=== PATIENT | male | born 1975 | race Caucasian/White ===

== ENCOUNTER 2017-04-19 12:33 | Inpatient (IN) | payer OTHER ==
[~2017-04-19] VITALS: Ht 175.3 cm; Wt 76.7 kg
--- NOTE | 2017-04-19 12:35 | NUR ---
PT TO ROOM21 BIBA FROM HOME FOR UNRESPONSIVNESS AND ?OVERDOSE. PT WAS FOUND AT HIS PORCH ALTERED, WITH VOMIT OVER HIS SHIRT. PT RECEIVED 0.2 OF NARCAN WITH MINIMUM EFFECT. ARRIVED RESPONCIVE TO PAINFUL STIMULI, ON NON REBREATHER, O2SAT 100%, VSS, BG 109 BY SHOT BLAST EQUIPMENT OPERATOR. LUIS CALDERÓN AT BEDSIDE FOR PT EVAL.
--- NOTE | 2017-04-19 12:42 | NUR ---
BLOOD DRAWN AND SENT TO LAB-2SST,LAV,BLUE,CHRISTINE. PT REMAINES UNRESPONSIVE, MEDICATED WITH NARCAN 0.8 IV WITH NO EFFECT. RESP AT BEDSIDE FOR SXN.
--- NOTE | 2017-04-19 12:46 | ED AMS/SEIZURE/WEAK/DIZZY ---
History of Present Illness General Chief Complaint: Altered Mental Status Stated Complaint: ?OD Source: old records, EMS Exam Limitations: clinical condition Triage Nurses Notes Reviewed? yes Onset: UNKNOWN Duration: unknown duration No Modifying Factors: none HPI: 42-year-old male brought in for possible overdose. Patient was found on his front porch by his landlord and was altered and drooling on himself. Ambulance was called. When 0.2 mg of Narcan was given in the field with minimal response. Pupils were pinpoint. Patient has a history of heroin abuse as well as alcohol abuse. Patient is not able to offer any type of information. Patient is obtunded. (DONTAE REGAN) Vital Signs & Intake/Output Vital Signs & Intake/Output Vital Signs Date Time Temp Pulse Resp B/P B/P Pulse O2 O2 Flow FiO2 Mean Ox Delivery Rate 04/19 1540 96.8 85 14 114/71 97 Nasal 4.0L Cannula 04/19 1417 95.9 93 14 117/66 98 Nasal 4.0L Cannula 04/19 1342 95.6 89 18 109/67 100 Non 100% ReBreather 04/19 1255 100 Non 100% ReBreather 04/19 1239 95.0 86 16 137/90 98 Non 10L ReBreather 04/19 1236 100 Non ReBreather Allergies Coded Allergies: UNOBTAINABLE (04/19/17) Reconcile Medications Unable to Obtain Home Medication History (DIVINE RODRIGUEZ,AMA Ch) Past History Travel History Traveled to [place] past 21 day No Medical History Any Pertinent Medical History? see below for history Surgical History Surgical History: non-contributory Family History Hx Contributory? No (DONTAE REGAN) Review of Systems Review of Systems Constitutional: Reports: see HPI. EENTM: Reports: no symptoms. Respiratory: Reports: see HPI. Cardiovascular: Reports: no symptoms. GI: Reports: no symptoms. Genitourinary: Reports: no symptoms. Musculoskeletal: Reports: no symptoms. Skin: Reports: no symptoms. Neurological/Psychological: Reports: no symptoms. Hematologic/Endocrine: Reports: no symptoms. Immunologic/Allergic: Reports: no symptoms. All Other Systems: Reviewed and Negative (DONTAE REGAN) Physical Exam Physical Exam General Appearance: sedated, moderate distress, PATIENT NOT RESPONDING TO PAINFUL STIMULI Head: atraumatic Eyes: Bilateral: PERRL (PUPILS PINPOINT). Ears, Nose, Throat: PATIENT HAS SECRETIONS ALL-AROUND ORAL CAVITY, GURGLING, Neck: normal inspection Respiratory: decreased breath sounds Cardiovascular: regular rate/rhythm Back: normal inspection Extremities: NORMAL INSPECTION Neurologic/Psych: disoriented x 3 Skin: intact, normal color (DONTAE REAGN) Core Measures ACS in differential dx? No CVA/TIA Diagnosis: No Severe Sepsis Present: No Septic Shock Present: No (DIVINE RODRIGUEZ,AMA Ch) Progress Differential Diagnosis: arrythmia, alcohol intoxication, anemia, benign positional vertigo, CVA/stroke, drug intoxication, encephalitis, electrolyte imbalance, GI bleed, intracranial Hem., intracranial mass/tumor, meningitis, Meniere's disease, migraine OLIVARES, multiple sclerosis, pneumonia, postural hypotension, sepsis, seizure disorder, subarachnoid Hem., UTI/pyelo Diagnostic Imaging: Viewed by Me: Radiology Read, CT Scan. Discussed w/RAD: Radiology Read, CT Scan. Radiology Impression: EXAM TYPE: RAD - XRY-PORTABLE CHEST XRAY EXAMINATION: XR PORTABLE CHEST CLINICAL INFORMATION: Overdose, evaluate for aspiration. COMPARISON: None TECHNIQUE: Portable frontal view of the chest was obtained. FINDINGS: The cardiomediastinal silhouette is unremarkable. Lung volumes are diminished. There is minimal discoid atelectasis suspected at the bilateral lung bases. The lungs and pleural spaces otherwise appear clear without evidence of congestion, consolidation, or significant appearing effusion or atelectasis. There is no evidence of pneumothorax or pulmonary edema. Included osseous structures appear largely unremarkable. IMPRESSION: Low lung volumes. Minimal atelectasis or scarring bilateral lung bases. DICTATED BY: HILTON CHOUDHURY MD DATE/TIME DICTATED:04/19/171320 HORSERADISH MAKER:ZAHRA DATE/TIME TRANSCRIBED:04/19/171320, SERVICE DATE: 04/19/17 EXAM TYPE: CAT - CT HEAD WO IV CONTRAST EXAMINATION: CT HEAD WITHOUT CONTRAST CLINICAL INFORMATION: Altered mental status. COMPARISON: No relevant prior imaging available. TECHNIQUE: Contiguous axial imaging was performed from the skull base to vertex without intravenous administration of contrast. DLP: 620.91 mGy-cm FINDINGS: There is mineralization associated with a triangular focus of hypoattenuation within the right cerebellar hemisphere. 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 Murphy-white matter differentiation is otherwise preserved and there is no evidence of acute territorial infarct. No acute hemorrhage or abnormal extra-axial collection. No intracranial mass effect or midline shift. Lateral and third ventricles are normal. No hydrocephalus. That calvarium and skull base are intact. Mastoid air cells and middle ear cavities are well aerated. Visualized paranasal sinuses are well-aerated. 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 The possibility of a cerebellar dysplasia cannot be definitively excluded on basis of this examination. A brain MRI can be obtained for better anatomic characterization of this finding. Otherwise normal CT scan of the head with no evidence of acute territorial infarct or hemorrhage. DICTATED BY: KIT RODRIGUEZ, NEISHA Saravia DATE/TIME DICTATED:04/19/171510 HORSERADISH MAKER:ZAHRA Initial ED EKG: normal intervals, normal p-waves, normal QRS complex, normal sinus rhythm, rate (81) (MARISELA SMITH,DONTAE) Plan of Care: Orders Procedure Date/time Status Patient Data 04/19 1700 Active Admit to inpatient 04/19 1625 Active Add-on Test (ER Only) 04/19 1410 Active URINALYSIS 04/19 1258 Complete [place], Insertion/Removal/Asses 04/19 1253 Active CULTURE,URINE 04/19 1253 Active Telemetry/Race Engine Builder 04/19 1245 Active URINE DRUGS OF ABUSE 04/19 1245 Complete ACETOMINOPHEN 04/19 1245 Complete TROPONIN LEVEL 04/19 1245 Complete SALICYLATE 04/19 1245 Complete ETHANOL 04/19 1245 Complete COMPREHENSIVE METABOLIC PANEL 04/19 1245 Complete CBC WITHOUT DIFFERENTIAL 04/19 1245 Complete EKG 04/19 1239 Active Laboratory Tests 04/19/17 1306: HIV 1&2 Antibody Cancelled 04/19/17 1258: Urinalysis HEAVY H, Urine Color YEL, Urine Clarity TURBD H, Urine pH 6.0, Ur Specific [place] >= 1.030, Urine Protein TRACE H, Urine Ketones TRACE H, Urine Nitrite NEG, Urine Bilirubin NEG, Urine Urobilinogen 0.2, Ur Leukocyte Esterase NEG, Ur Microscopic SEDIMENT EXAMINED, Urine Bacteria FEW H, Urine Hemoglobin NEG, Urine Glucose NEG 04/19/17 1255: Urine Opiates Screen < 100.00, Methadone Screen < 40, Barbiturate Screen 71, Ur Phencyclidine Scrn < 6.00, Amphetamines Screen 115, U Benzodiazepines Scrn > 800 H, Urine Cocaine Screen > 1000 H, Urine Cannabis Screen < 5.00 04/19/17 1255: Anion Gap 16, Estimated GFR > 60, BUN/Creatinine Ratio 35.0 H, Glucose 108 H, Calcium 10.6 H, Total Bilirubin 0.6, AST 24, ALT 34, Alkaline Phosphatase 76, Troponin I < 0.01, Total Protein 7.9, Albumin 4.9, Globulin 3.0, Albumin/ Globulin Ratio 1.6, CBC w Diff MAN DIFF ORDERED, RBC 4.99, MCV 96.7 H, MCH 31.6 H, RDW 13.5, MPV 9.6, Gran % 88.2 H, Lymphocytes % 6.0 L, Monocytes % 3.1, Eosinophils % 2.5, Basophils % 0.2, Absolute Granulocytes 18.6 H, Absolute Lymphocytes 1.3, Absolute Monocytes 0.7 H, Absolute Eosinophils 0.5, Absolute Basophils 0, Platelet Estimate ADEQUATE, Normocytic RBCs VERIFIED, Normochromic RBCs VERIFIED, PUBS MCHC 32.7 L, Salicylates < 1.0, Acetaminophen < 10.0 L, Serum Alcohol 15.0 Microbiology 04/19 1258 URINE ROUT: Urine Culture - RECD Comments: 1437 d/w dr alfaro, who feels the patient should be observed in the emergency department for about another hour to see if he improves to the point where he wouldn't need the ICU. 1542 patient remains lethargic with otherwise stable vital signs. Patient's case discussed with Dr. Alfaro who will review the patient's chart. (DIVINE RODRIGUEZ,AMA Ch) Departure Departure Condition: Stable Referrals: ROLANDO WOODY MD (PCP/Family) Departure Forms: Customer Survey General Discharge Information (DONTAE REGAN) Departure Disposition: STILL A PATIENT Clinical Impression Primary Impression: Polysubstance overdose Qualifiers: Encounter type: initial encounter Injury intent: undetermined intent Qualified Code: T50.904A - Poisoning by unspecified drugs, medicaments and biological substances, undetermined, initial encounter Secondary Impressions: Benzodiazepine abuse Cocaine abuse Leukocytosis Qualifiers: Leukocytosis type: unspecified Qualified Code: D72.829 - Elevated white blood cell count, unspecified Prescriptions: Current Visit Scripts Unable to Obtain Home Medication History Admission Note Spoke With: FAY RODRIGUEZ,AFTAB Yodre Documentation of Exam: Documentation of any treatments & extenuating circumstances including Concerns Regarding Discharge (functional status, medication knowledge or non-compliance, living conditions, etc.) that warrant an admission rather than observation: Patient presents nearly unresponsive from a polypharmaceutical overdose. Although he has been medicated with IV fluids and Narcan, he remains lethargic. Fortunately he has been managing his airway appropriately and has been hemodynamically stable. However given his current clinical condition I feel he requires intensive unit care with close clinical monitoring of physical examination vital signs. Continuous pulse oximetry should be monitored as well and patient's oxygen supplementation adjusted accordingly. Given the very limited history obtainable, the substances this patient has overdosed with is unclear as is the underlying intent. This could have potentially been a suicide overdose. Feel this patient should be admitted to the intensive care unit as outlined above. Psychiatry consultation should be considered once the patient is more awake and alert. Given the unclear nature of this patient's presentation I suspect he will require a multiple day hospitalization. PA/SAFETY TRAINER Co-Sign Statement Statement: ED Attending supervision documentation- [x] I saw and evaluated the patient. I have also reviewed all the pertinent lab results and diagnostic results. I agree with the findings and the plan of care as documented in the PA's/SAFETY TRAINER's documentation. [] I have reviewed the ED Record and agree with the PA's/SAFETY TRAINER's documentation. [] Additions or exceptions (if any) to the PAs/SAFETY TRAINER's note and plan are summarized below: [] (DIVINE RODRIGUEZ,AMA Ch) Critical Care Note Critical Care Note Critical Care Time: 30-74 min (AMA HASKINS MD)
--- NOTE | 2017-04-19 13:03 | NUR ---
PT RECEIVED 2ND DOSE OF NARCAN 0.8 IV WITH NO IMPROVEMENT. REMAINES ON NON-REBREATHER 02SAT 98%
[2017-04-19 13:07] LABS: ABSOLUTE BASOPHIL COUNT 0 /CUMM (0.0-0.2); ABSOLUTE EOSINOPHIL COUNT 0.5 /CUMM (0.0-0.7); ABSOLUTE GRANULOCYTE CT 18.6 /CUMM (1.4-6.5); ABSOLUTE LYMPH COUNT 1.3 /CUMM (1.2-3.4); ABSOLUTE MONOCYTE COUNT 0.7 /CUMM (0.10-0.60); BASOPHIL % 0.2 % (0.0-2.0); EOSINOPHIL % 2.5 % (0-5); GRANULOCYTE % 88.2 % (42.2-75.2); HEMATOCRIT 48.2 % (42-52); MEAN CORPUSCULAR HGB 31.6 PG (27.0-31.0); MEAN CORPUSCULAR HGB CONC 32.7 G/DL (33.0-37.0); MEAN CORPUSCULAR VOLUME 96.7 FL (80.0-94.0); MEAN PLATELET VOLUME 9.6 FL (7.4-10.4); PLATELET COUNT 221 /CUMM (130-400); RBC DISTRIBUTION WIDTH 13.5 % (11.5-14.5); RED BLOOD CELL CT 4.99 /CUMM (4.70-6.10); WHITE BLOOD CELL COUNT 21.1 /CUMM (4.8-10.8)
--- NOTE | 2017-04-19 13:27 | RADIOLOGY REPORT ---
EXAMINATION: XR PORTABLE CHEST CLINICAL INFORMATION: Overdose, evaluate for aspiration. COMPARISON: None TECHNIQUE: Portable frontal view of the chest was obtained. FINDINGS: The cardiomediastinal silhouette is unremarkable. Lung volumes are diminished. There is minimal discoid atelectasis suspected at the bilateral lung bases. The lungs and pleural spaces otherwise appear clear without evidence of congestion, consolidation, or significant appearing effusion or atelectasis. There is no evidence of pneumothorax or pulmonary edema. Included osseous structures appear largely unremarkable. IMPRESSION: Low lung volumes. Minimal atelectasis or scarring bilateral lung bases.
--- NOTE | 2017-04-19 13:41 | NUR ---
PT STILL RESPONSIVE TO PAINFUL STIMULI ONLY BY MOANING AND STILL ON NON REBREATHER, 02SAT 100%, SKIN COOL/DRY, PUPILS 1MM, VSS. WCTM.
--- NOTE | 2017-04-19 14:14 | NUR ---
2SST TUBES DRAN AND SENT TO LAB. PT REMAINES UNRESPONSIVE. PLACED ON NC 4L PER ORDER LUIS ANTONIO, O2SAT 98%, RR14. VSS. WCTM.
--- NOTE | 2017-04-19 14:32 | NUR ---
RESP AT BEDSIDE FOR SXN.
--- NOTE | 2017-04-19 14:48 | NUR ---
PT TO CAT SCAN BY STRETCHER.
--- NOTE | 2017-04-19 15:24 | CT SCAN REPORT ---
EXAMINATION: CT HEAD WITHOUT CONTRAST CLINICAL INFORMATION: Altered mental status. COMPARISON: No relevant prior imaging available. TECHNIQUE: Contiguous axial imaging was performed from the skull base to vertex without intravenous administration of contrast. DLP: 620.91 mGy-cm FINDINGS: There is mineralization associated with a triangular focus of hypoattenuation within the right cerebellar hemisphere. 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 Murphy-white matter differentiation is otherwise preserved and there is no evidence of acute territorial infarct. No acute hemorrhage or abnormal extra-axial collection. No intracranial mass effect or midline shift. Lateral and third ventricles are normal. No hydrocephalus. That calvarium and skull base are intact. Mastoid air cells and middle ear cavities are well aerated. Visualized paranasal sinuses are well-aerated. 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 The possibility of a cerebellar dysplasia cannot be definitively excluded on basis of this examination. A brain MRI can be obtained for better anatomic characterization of this finding. Otherwise normal CT scan of the head with no evidence of acute territorial infarct or hemorrhage.
--- NOTE | 2017-04-19 15:40 | NUR ---
PT RESPONDED TO TACTILE STIMULI BY MOANING AND OPENING EYES, VSS. WCTM.
--- NOTE | 2017-04-19 16:56 | NUR ---
PT RESPONSIVE TO TACTILE STIMULI BY OPENING EYES ONLY, O2 TITRATED DOWN TO 2L NC WITH O2SAT REMAINING AT 99% VSS.
--- NOTE | 2017-04-19 17:39 | NUR ---
HOUSE STAFF TO BEDSIDE FOR PT EVAL.
--- NOTE | 2017-04-19 17:54 | History & Physical ---
POLLO RODRIGUEZ,[facility] 04/19/17 6701: General Information and HPI MD Statement: I have seen and personally examined INDIGO SELLERS and documented this H&P. The patient is a 42 year old M who presented after he was found unresponsive Source of Information: old records, EMR Exam Limitations: unable to give history, not alert/orientated, clinical condition, intoxication History of Present Illness: Patient is unable to provide history as he still unconscious and only respond to painful stimuli. 42-year-old male with unobtainable PMH who presented to the [facility] ED after his Landlord found him lying on his front porch unconscious with a mouth full of secretions. On the way to the hospital he was given Narcan 0.8 mg twice with no response. Past medical history, past surgical history, social history, allergies, review of system cannot be obtained as mentioned above. Allergies/Medications Allergies: Coded Allergies: UNOBTAINABLE (04/19/17) Home Med list Unable to Obtain Home Medication History Past History Travel History Traveled to [place] past 21 day No Surgical History Surgical History: non-contributory Past Family/Social History Psychosocial History Other Social History: Looked H&P Review of Systems Review of Systems Constitutional: Reports: see HPI. Exam & Diagnostic Data Last 24 Hrs of Vital Signs/I&O Vital Signs Date Time Temp Pulse Resp B/P B/P Pulse O2 O2 Flow FiO2 Mean Ox Delivery Rate 04/19 1656 99.0 77 16 104/63 100 Nasal 2.0L Cannula 04/19 1540 96.8 85 14 114/71 97 Nasal 4.0L Cannula 04/19 1417 95.9 93 14 117/66 98 Nasal 4.0L Cannula 04/19 1342 95.6 89 18 109/67 100 Non 100% ReBreather 04/19 1255 100 Non 100% ReBreather 04/19 1239 95.0 86 16 137/90 98 Non 10L ReBreather 04/19 1236 100 Non ReBreather Intake & Output 04/19 1600 04/19 0800 04/19 0000 Intake Total Output Total 300 Balance -300 Output, Urine 300 Patient 72.575 kg Weight Weight Estimated Measurement Method Physical Exam General Appearance note alert nor oriented Skin No Rashes, No Significant Lesion HEENT Atraumatic, pinpoint pupil that does not react to light Neck Supple, No JVD Cardiovascular Regular Rate, Normal S1, Normal S2, No Murmurs Lungs mild rhonchi Abdomen Soft Neurological unconscious response only to painful stimuli Extremities No Clubbing, No Cyanosis, No Edema Last 24 Hrs of Labs/Isreal: Laboratory Tests 04/19/17 1306: HIV 1&2 Antibody Cancelled 04/19/17 1258: Urinalysis HEAVY H, Urine Color YEL, Urine Clarity TURBD H, Urine pH 6.0, Ur Specific [place] >= 1.030, Urine Protein TRACE H, Urine Ketones TRACE H, Urine Nitrite NEG, Urine Bilirubin NEG, Urine Urobilinogen 0.2, Ur Leukocyte Esterase NEG, Ur Microscopic SEDIMENT EXAMINED, Urine Bacteria FEW H, Urine Hemoglobin NEG, Urine Glucose NEG 04/19/17 1255: Urine Opiates Screen < 100.00, Methadone Screen < 40, Barbiturate Screen 71, Ur Phencyclidine Scrn < 6.00, Amphetamines Screen 115, U Benzodiazepines Scrn > 800 H, Urine Cocaine Screen > 1000 H, Urine Cannabis Screen < 5.00 04/19/17 1255: Anion Gap 16, Estimated GFR > 60, BUN/Creatinine Ratio 35.0 H, Glucose 108 H, Calcium 10.6 H, Total Bilirubin 0.6, AST 24, ALT 34, Alkaline Phosphatase 76, Troponin I < 0.01, Total Protein 7.9, Albumin 4.9, Globulin 3.0, Albumin/ Globulin Ratio 1.6, CBC w Diff MAN DIFF ORDERED, RBC 4.99, MCV 96.7 H, MCH 31.6 H, RDW 13.5, MPV 9.6, Gran % 88.2 H, Lymphocytes % 6.0 L, Monocytes % 3.1, Eosinophils % 2.5, Basophils % 0.2, Absolute Granulocytes 18.6 H, Absolute Lymphocytes 1.3, Absolute Monocytes 0.7 H, Absolute Eosinophils 0.5, Absolute Basophils 0, Platelet Estimate ADEQUATE, Normocytic RBCs VERIFIED, Normochromic RBCs VERIFIED, PUBS MCHC 32.7 L, Salicylates < 1.0, Acetaminophen < 10.0 L, Serum Alcohol 15.0 Microbiology 04/19 1759 URINE ROUT: Legionella Antigen - ORD 04/19 1759 URINE ROUT: Streptococcus pneumoniae Antigen (M - ORD 04/19 1759 LOWER RESP: Respiratory Culture - ORD 04/19 1759 LOWER RESP: Gram Stain - ORD 04/19 1759 BLOOD: Blood Culture - ORD 04/19 1759 BLOOD: Blood Culture - ORD 04/19 1757 UPPER RESP: Surveillance Culture - ORD 04/19 1757 GI: Surveillance Culture - ORD 04/19 1258 URINE ROUT: Urine Culture - RECD Assessment/Plan Assessment: This 42-year-old male with an unavailable PMH, who was found unresponsive with large oral secretions and aspiration cannot be excluded plus leukocytosis. U tox on the ED was positive for cocaine and benzodiazepine. EKG had less than [address] depression on lead 3 only, even though ACS is unlikely it will need to be excluded. AMS most likely due to Polysubstance abuse * Monitor in the ICU * Hydrate with IV fluids * Watch for withdrawal symptom * No beta mirza(cocaine overdose) * CK level * Echocardiogram * Serial troponin and EKG to rule out ACS * We will try to contact patient family and PCP if possible in the morning Possible aspiration pneumonia Given the high risk of aspiration pneumonia she will be covered with antibiotic * Unasyn 3 g every 6 hours. Macrocytosis with a history of substance abuse * Check B12 and folic acid * Supplement if necessary Nothing by mouth DVT PPx heparin Full code As Ranked By This Provider Problem List: 1. Leukocytosis Qualifiers Leukocytosis type: unspecified Qualified Code: D72.829 - Elevated white blood cell count, unspecified 2. Benzodiazepine abuse 3. Cocaine abuse 4. Polysubstance overdose Qualifiers Encounter type: initial encounter Injury intent: undetermined intent Qualified Code: T50.904A - Poisoning by unspecified drugs, medicaments and biological substances, undetermined, initial encounter Core Measures/Miscellaneous Acute Coronary Syndrome ACS Diagnosis: No Cerebrovascular Accident CVA/TIA Diagnosis: No Congestive Heart Failure CHF Diagnosis: No VTE (View Protocol) VTE Risk Factors: Acute medical illness, Age > 40 [facility] prophylaxis d/t: No contraindications No VTE Pharm Prophylaxis d/t: No contraindications VTE Diagnosis: No VTE Type: NONE VTE Confirmed by (Test): NONE Sepsis (View Protocol) Severe Sepsis Present: No Septic Shock Septic Shock Present: No Miscellaneous Documentation Attending Case Discussed With: AFTAB APONTE MD Primary Care Physician: ROLANDO WOODY MD Patient sees these Specialists pulm Level of Patient Care: Critical Care (CRI) ENRIQUE LOAIZA MD 04/19/17 1758: Resident Review Statement Resident Statement: examined this patient, discussed with customer experience intern Other Findings: This is a 42-year-old gentleman with no recorded past medical history, takes no meds per medication claim history presented to the emergency room via ambulance after his landlord found him unconscious on his front porch altered and drooling on himself. He was brought to the emergency room for evaluation via ambulance. He was given Narcan 0.82 with no response. At present the patient is unable to provide a history as he continues to be altered. His U tox is positive for benzodiazepines and cocaine, he is admitted to the ICU for the same. At present he is attended hence a meaningful review systems could not be obtained. I tried contacting his contact listed in the EMR however it states that the number I have dialed is unreachable. Physical exam Patient awakens only to sternal rub Skin exam is normal Normal S1 and S2, no murmurs Lungs are clear to auscultation Neuro exam could not be elicited given his clinical condition EKG- rate 81, IA 172, QRS 102, QTC 441, sinus rhythm, no ST to T wave changes, no previous tracing to compare with Assessment- 1. Altered mental status likely secondary to cocaine and benzodiazepine overdose 2. Possible aspiration 3. Leukocytosis, reactive versus new onset aspiration 4. ? UTI Plan- Admit to the ICU Vitals per protocol Strict I's and O's IV fluids normal saline at 100 mL times one bag Walter culture Start on Unasyn 3 g every 6 Monitor for withdrawal symptoms, consider clonidine, low-dose benzo or Haldol for withdrawal No beta mirza Trend troponin EKG Check echocardiogram, rule out endocarditis Check hepatitis and HIV profile Pain pathway DVT prophylaxis with subcutaneous heparin Full code FAY RODRIGUEZ,[facility] 04/19/17 1843: Attending MD Review Statement Attending Statement Attending MD Statement: examined this patient, discuss w/resident/PA/PATTERN DESIGNER, agreed w/resident/PA/PATTERN DESIGNER, discussed with family, reviewed EMR data (avail), discussed with nursing, discussed with case mgmt, reviewed images, amended to note Attending Assessment/Plan: Examined independently PT sleepy but arousable to verbal command but drifts back to sleep Assessment- 1. Altered mental status likely secondary to cocaine and benzodiazepine overdose 2. Possible aspiration 3. Leukocytosis, reactive versus new onset aspiration 4. ? UTI REC Admit to ICU Watch IVf abx keep hob up Prn benzo for agitation Qtc to be checked and use prn olanzapine
--- NOTE | 2017-04-19 18:03 | NUR ---
BED ASSIGNMENT 104
[2017-04-19 18:26] LABS: PT 10.8 SEC (9.4-12.5)
--- NOTE | 2017-04-19 18:32 | NUR ---
NO CHANGE IN PTS STATUS, VSS, NS INFUSING PER EMAR.
--- NOTE | 2017-04-19 19:13 | NUR ---
2 SETS OF BC DONE BY CAITY MANCUSO. UNASYN INFUSING PER EMAR. PT RESPONSING TO VOICE, OPENING EYES, MOVING UPPER EXTREMITIES. VSS.
--- NOTE | 2017-04-19 21:00 | NUR ---
RECIEVED PT FROM ER. PT AROUSABLE, CONFUSED. STATES HE WANTS A COFFEE, PT REMINDED HE IS NPO. MOVES ALL EXT. ST 100'S. SBP 100. NC/2L RHONCHI IN ALL LUNG MOONEY. 97%. +BS. LORENZ CATH IN PLACE SOURAV OUTPUT. SKIN INTACT. DENIES PAIN. BED ALARM APPLIED. IVF 100ML.HR X 1 BAG PER SERO. WILL CONT TO MONITOR
[2017-04-20] VITALS: BP 100/60
[2017-04-20 04:31] LABS: ABSOLUTE BASOPHIL COUNT 0.1 /CUMM (0.0-0.2); ABSOLUTE EOSINOPHIL COUNT 0.8 /CUMM (0.0-0.7); ABSOLUTE GRANULOCYTE CT 10.3 /CUMM (1.4-6.5); ABSOLUTE LYMPH COUNT 2.3 /CUMM (1.2-3.4); ABSOLUTE MONOCYTE COUNT 1.2 /CUMM (0.10-0.60); BASOPHIL % 0.3 % (0.0-2.0); EOSINOPHIL % 5.6 % (0-5); GRANULOCYTE % 70.7 % (42.2-75.2); MEAN CORPUSCULAR HGB 31.8 PG (27.0-31.0); MEAN CORPUSCULAR VOLUME 96.5 FL (80.0-94.0); MEAN PLATELET VOLUME 9.4 FL (7.4-10.4); PLATELET COUNT 205 /CUMM (130-400); RBC DISTRIBUTION WIDTH 13.5 % (11.5-14.5); RED BLOOD CELL CT 4.06 /CUMM (4.70-6.10); WHITE BLOOD CELL COUNT 14.6 /CUMM (4.8-10.8)
[2017-04-20 04:36] LABS: HEMATOCRIT 39.2 % (42-52)
--- NOTE | 2017-04-20 07:18 | PN- Resident CRCU ---
PO[facility]O R[facility]IGUEZ[facility] 04/20/17 0717: Subjective HPI/CRCU Issues: Afebrile, hemodynamically stable, saturating well on 2 L of oxygen. Patient is lethargic and sleepy but arousable to verbal commands. His morning he reports being hungry and asked for break fast. No overnight events were reported. Patient denies any current active complaints. Patient stated that he wanted to end his life and took benzos and cocaine 24 Hour Events: MAXIMUM TEMPERATURE 99.5 Heartrate 92-110 with average Blood pressure 92/52 and highest 137/68 Saturating mid 90s on 2 L of oxygen Yesterday Is/Os 560/1220 (negative balance) Objective Vital Signs & I&O Last 8 Hrs of Vitals and I&O: Vital Signs Date Time Temp Pulse Resp B/P B/P Pulse O2 O2 Flow FiO2 Mean Ox Delivery Rate 04/20 0400 94 Nasal 2.0L Cannula 04/20 0200 94 Nasal 2.0L Cannula 04/20 0059 97 Nasal 2.0L Cannula 04/20 0000 93 Nasal 2.0L Cannula 04/20 0000 98.4 110 20 100/60 93 Nasal 2.0L Cannula 04/19 2050 97 Nasal 2.0L Cannula 04/19 1916 99.6 102 16 109/60 98 Nasal 2.0L Cannula 04/19 1826 99.8 107 18 107/65 93 Nasal 3.0L Cannula 04/19 1656 99.0 77 16 104/63 100 Nasal 2.0L Cannula 04/19 1540 96.8 85 14 114/71 97 Nasal 4.0L Cannula 04/19 1417 95.9 93 14 117/66 98 Nasal 4.0L Cannula 04/19 1342 95.6 89 18 109/67 100 Non 100% ReBreather 04/19 1255 100 Non 100% ReBreather 04/19 1239 95.0 86 16 137/90 98 Non 10L ReBreather 04/19 1236 100 Non ReBreather Intake & Output 04/20 1600 07 0800 06/ 0000 Intake Total 260 300 Output Total 350 870 Balance -90 -570 Intake, IV 260 300 Intake, Oral 0 0 Number 0 0 Bowel Movements Output, Urine 350 870 Patient 76.657 kg Weight Weight Bed scale Measurement Method Exam General Appearance: no apparent distress, alert, lethargic Head: atraumatic, normal appearance Respiratory: chest non-tender, no respiratory distress, rhonchi Cardiovascular: regular rate/rhythm, No murmur Gastrointestinal: soft, non-tender Extremities: normal inspection, no edema Cranial Nerves: normal speech, PERRL Skin: intact, normal color Current Medications: Current Medications Sig/Isiah Start time Last Medication Dose Route Stop Time Status Admin Albuterol Sulfate 3 ML ONCE ONE 04/20 0145 DC 04/20 INH 04/20 0146 0138 Ampicillin Sodium/ 0 .STK-MED ONE 04/19 1834 DC Sulbactam Sodium .ROUTE Ampicillin Sodium/ 3,000 MG Q6 04/19 1800 AC 04/20 Sulbactam Sodium IV 0509 Sodium Chloride 100 ML Ergocalciferol 50,000 IU Q168 04/26 1000 AC PO Heparin Sodium 5,000 UNIT Q8 04/19 2200 AC 04/20 (Porcine) SC 0515 Magnesium Sulfate 1 GM ONCE ONE 04/20 0730 AC Dextrose/Water 100 ML IV 04/20 1129 Naloxone HCl 0 .STK-MED ONE 04/19 1257 DC .ROUTE Naloxone HCl 0.8 MG ONCE ONE 04/19 1245 DC 06/ IV 06/ 1246 1240 Naloxone HCl 0.8 MG ONCE ONE 04/19 1245 DC 06/ IV 06/ 1246 1300 Sodium Chloride 1,000 ML Q13H 04/20 0830 AC IV Sodium Chloride 1,000 ML ONCE ONE 04/19 1800 DC 06/ IV 06/ 0359 1831 Impression/Plan Impression/Problem List Impression: This 42-year-old male with an unavailable PMH, who was found unresponsive with some oral secretions and aspiration cannot be excluded plus leukocytosis. Day1 U tox on the ED was positive for cocaine and benzodiazepine.CT scan of the head with no evidence of acute territorial infarct or hemorrhage. RFT, LFT, TFT, CK, B12, and folic acid was WNL. Day2 patient is awake, alert and oriented. He states that he overdosed benzo and cocaine as a suicidal attempts. He is hungry and asking for food. #Suicidal ideation/depression * One-to-one sitter * Urgent Psych consult will be placed * We'll repeat EKG looking for QT interval incase antipsychotic needed * When necessary antipsychotic #AMS secondary to substance abuse(cocaine and benzodiazepine overdose) * Continue Hydrate with IV fluids until tolerates oral intake * Watch for withdrawal symptom * No beta mirza(cocaine overdose) * Echocardiogram * We'll DC Salcido cath Possible aspiration pneumonia * We will switch Unasyn 3 g to Augmentin by mouth * We will repeat chest x-ray in the morning, as per pulmonology if no infiltration antibiotic can be DC'd Macrocytosis with a history of substance abuse * Normal B12 and folic acid * Most likely secondary to substance abuse including alcohol #Vitamin D deficiency(15) * Supplement with vitamin D Problem List: 1. Polysubstance overdose 2. Leukocytosis 3. Cocaine abuse 4. Benzodiazepine abuse Pain Ratin Tomorrow's Labs & Rationales: CBC Plan DVT/Prophylaxis: mechanical, pharmacological FAY R[facility]IGUEZ[facility] 04/20/17 1022: Attending MD Review Statement Attending Sign Off Attending Cosign Statement: I have: examined this patient, [facility] EMR data, personally reviewd images, discussd w/resident/PA/SEWING MACHINES SALESPERSON, discussed mgmt plan w/bk, discussed mgmt plan w/CM, discussed mgmt plan w/pt, agreed w/resident/PA/SEWING MACHINES SALESPERSON, amended to note. Other Findings: Pt seen and examined indepently AAO DId say that he wanted to end his life and took benzos and cocaine Calm and eating IMPR Suicide attempt per pt Cocaine addiction Sig depression prob REC Urgent psych consult Sitter Cont prn antipsycotics EKg check qtc Watch for withdrawal Ok to the floor with a sitter Change to po augmentin for now Cxr in am if no infiltrate dc abx
[2017-04-20 08:00] VITALS: BP 100/58
--- NOTE | 2017-04-20 09:54 | NUR ---
PT IS DROWSY AND WAKES EASILY. HE VOICED DESIRE TO LEAVE HOSPITAL. NOTIFIED. POC REVIEWED. LORENZ D/C/D AND DIET STARTED. PT AGGREES TO REMAIN FOR NOW.
--- NOTE | 2017-04-20 10:58 | NUR ---
DR. APONTE IN, PT VERBALIZED FEELING DEPRESSED LATELY AND THAT HE HAD TAKEN 40-50 BENZOS IN A SUICIDE ATTEMPT. PSYCHE TO SEE. JARED ONTAINED. POC REVIEWED WITH PT.
--- NOTE | 2017-04-20 13:05 | Cons- Psychiatry ---
Psychiatric Consult Date of Consult: 04/20/17 Reason for Consult: Status post overdose, patient endorses suicide attempt. Ordered by Dr. Matty Robles MD attending History of Present Illness: Identifying Info: 42-year-old brought in by ambulance to the emergency department with AMS on 04/19/17. He was admitted to medicine for cocaine and benzodiazepine overdose and subsequently endorsed suicidal attempt. CC: "I'm tired" HPI: Patient was found by his landlord on 04/19/2017 unresponsive lying on his front porch. Ambulance was called and he was brought to [facility] emergency department. Narcan was administered in the field to poor effect. Patient was stabilized and admitted to the critical care unit. This morning the patient reported to house staff and attending that he consumed 40-50 pills of an unknown benzodiazepine in attempt to kill himself because he could not stop using cocaine. Urgent psych consult was placed and patient was interviewed. Patient reports "I don't know how I got here." He states he has been consuming large quantities of crack cocaine. He has had a chronic pattern of relapse, at times achieving up to a month sober over the past year however he has been unable to stop using. Due to his frustration and the large quantity of money is spent on cocaine he attempted to end his life yesterday by consuming "benzos." He states it was not Xanax but does identify what pills he took. He states he took these pills and then went swimming [place] "to relax... I did not jump in." He does not know how he ended up back at his residence. He reports that he had a similar suicide attempt in June of last year which led to an inpatient hospitalization at [facility]. Verbalized understanding of need to stay in hospital but also stated he wanted to leave, "I don't know doc, I might jump out of the window, I got stuff to do." Verbalized understanding of PEC process and the need for one-to-one sitter and contracted for safety in the hospital. He states he would not like to take any medication. He just needs to "get strong again." Per nursing report patient has been somnolent and somewhat paranoid regarding police knowing he was here but calm and cooperative in general. However he has expressed a desire to leave and get his "life started over." Reports he would like to return to [place] because he has no family in this country. Review of [place] Judicial lookup reveals one pending case involving patient that is statutoraly sealed. Review of CT ECHO TECHNICIAN from last 3 years reveals 1 previous month long prescription for clonazepam 1mg BID by tablet making machine operator helper Sara Campo MD of [employer] in . PMH: Please see the H&P for a complete listing Past Psych History: [facility] 06/29 status post overdose attempt. Family Psych History: Denies Substance History Cocaine use disorder. Of note patient reports he spent $250,000 on crack cocaine over the past year. Alcohol use disorder Current every day smoker -Treatment Endorses treatment but does not specify where, states outpatient and inpatient. Family Substance History: Did not obtain Social: [place] immigrant. Patient reports he moved to [facility] from [place] 17 years ago to a woman who he subsequently got from. He has 2 young children at least a 12 who reside with her. He currently lives alone in an apartment. Abuse/Trauma: Patient states "my life has been very hard" but will not elaborate. Current Home Psychotropic Medications: Denies Current Hospital Psychotropic Medications: None Allergies: Coded Allergies: UNOBTAINABLE (04/19/17) Current Medications: Current Medications Sig/Isiah Start time Last Medication Dose Route Stop Time Status Admin Albuterol Sulfate 3 ML ONCE ONE 04/20 0145 DC 04/20 INH 04/20 0146 0138 Amoxicillin/ 875 MG Q12 04/20 1308 AC Clavulanate Potassium PO Ampicillin Sodium/ 0 .STK-MED ONE 04/19 1834 DC Sulbactam Sodium .ROUTE Ampicillin Sodium/ 3,000 MG Q6 04/19 1800 DC 04/20 Sulbactam Sodium IV 0509 Sodium Chloride 100 ML Ergocalciferol 50,000 IU Q168 04/26 1000 CAN PO Ergocalciferol 50,000 IU ONCE ONE 04/20 1045 DC PO 04/20 1046 Heparin Sodium 5,000 UNIT Q8 04/19 2200 AC 04/20 (Porcine) SC 0515 Magnesium Sulfate 1 GM ONCE ONE 04/20 0730 DC 04/20 Dextrose/Water 100 ML IV 04/20 1129 0828 Sodium Chloride 1,000 ML Q13H 04/20 0830 DC 04/20 IV 0829 Sodium Chloride 1,000 ML ONCE ONE 04/19 1800 DC 04/19 IV 04/20 7349 8975 Past History Past Surgical History Surgical History: non-contributory Psychosocial History Strengths/Capabilities: Desire to stop using Physical Limitations (Interventions): Pattern of relapse, multiple suicide attempts Psychiatric Treatment History Psych Treatment Psychiatric Treatment Yes (as above) Diagnosis: Unknown Risk Factors: high anxiety/distress, history of suicide atmpts, SA/MH hospitalized, substance abuse, isolate/no social support, poor impulse control, lives alone, male, limited support Substance Use/Abuse History Drug Use/Abuse Substances Used/Abused Yes (as above) Substance Abuse Treatment Substance Abuse Treatment Past Substance Abuse [place] Yes (as above) Assessment/Plan Mental Status Mental Status Exam: Mental Status Exam Presentation/Appearance: Cooperative with evaluation. Hospital garb. Unkempt. Orientation: Oriented to self, place, year and situation Sensorium: Awake and alert Eye contact: Appropriate Affect: Somewhat constricted Mood: "I'm tired" Depression: Endorses Anxiety: Endorses Thought Content: - Denies SI/HI, AH/VH, PI. Unsure if he would use again or attempt suicide again in that context. - Endorses Hopeless/Helpless Thoughts Thought Process: Linear Associations: Appropriate Speech: Somewhat soft Judgment: Poor Insight: Poor Cognition: Memory: Short-term deficits over past few days, manager long term care grossly intact Attention/Concentration: Fair Fund of Knowledge: Did not assess Abstractions: Did not assess MMSE: Did not assess Lab Results: Laboratory Tests 04/20/17 0405: Anion Gap 9, Estimated GFR > 60, BUN/Creatinine Ratio 21.3, Glucose 87, Calcium 8.9, Phosphorus 4.0, Magnesium 1.9, Total Bilirubin 0.6, AST 15 L, ALT 33, Albumin 3.5, CBC w Diff NO MAN DIFF REQ, RBC 4.06 L, MCV 96.5 H, MCH 31.8 H, RDW 13.5, MPV 9.4, Gran % 70.7, Lymphocytes % 15.5 L, Monocytes % 7.9, Eosinophils % 5.6 H, Basophils % 0.3, Absolute Granulocytes 10.3 H, Absolute Lymphocytes 2.3, Absolute Monocytes 1.2 H, Absolute Eosinophils 0.8, Absolute Basophils 0.1, PUBS MCHC 33.0 04/19/17 1805: PT 10.8, INR 1.03 04/19/17 1802: Troponin I < 0.01, Hepatitis A IgM Ab NONREACTIVE, Hep Bs Antigen NONREACTIVE, Hep B Core IgM Ab Conf NONREACTIVE, Hepatitis C Antibody NONREACTIVE, HIV 1&2 Ab Western Blot NONREACTIVE 04/19/17 1306: HIV 1&2 Antibody Cancelled 04/19/17 1258: Urinalysis HEAVY H, Urine Color YEL, Urine Clarity TURBD H, Urine pH 6.0, Ur Specific Ecru >= 1.030, Urine Protein TRACE H, Urine Ketones TRACE H, Urine Nitrite NEG, Urine Bilirubin NEG, Urine Urobilinogen 0.2, Ur Leukocyte Esterase NEG, Ur Microscopic SEDIMENT EXAMINED, Urine Bacteria FEW H, Urine Hemoglobin NEG, Urine Glucose NEG 04/19/17 1255: Urine Opiates Screen < 100.00, Methadone Screen < 40, Barbiturate Screen 71, Ur Phencyclidine Scrn < 6.00, Amphetamines Screen 115, U Benzodiazepines Scrn > 800 H, Urine Cocaine Screen > 1000 H, Urine Cannabis Screen < 5.00 04/19/17 1255: Anion Gap 16, Estimated GFR > 60, BUN/Creatinine Ratio 35.0 H, Glucose 108 H, Calcium 10.6 H, Total Bilirubin 0.6, AST 24, ALT 34, Alkaline Phosphatase 76, Creatine Kinase 57, Troponin I < 0.01, Total Protein 7.9, Albumin 4.9, Globulin 3.0, Albumin/Globulin Ratio 1.6, Vitamin B12 416, 25-OH Vitamin D Total 15.1 L, Folate 7.5, TSH 0.986, Free T4 0.94, CBC w Diff MAN DIFF ORDERED, RBC 4.99, MCV 96.7 H, MCH 31.6 H, RDW 13.5, MPV 9.6, Gran % 88.2 H, Lymphocytes % 6.0 L, Monocytes % 3.1, Eosinophils % 2.5, Basophils % 0.2, Absolute Granulocytes 18.6 H, Absolute Lymphocytes 1.3, Absolute Monocytes 0.7 H, Absolute Eosinophils 0.5 , Absolute Basophils 0, Platelet Estimate ADEQUATE, Normocytic RBCs VERIFIED, Normochromic RBCs VERIFIED, PUBS MCHC 32.7 L, Salicylates < 1.0, Acetaminophen < 10.0 L, Serum Alcohol 15.0 Microbiology 04/19 2010 UPPER RESP: Surveillance Culture - RECD 04/19 2010 GI: Surveillance Culture - RECD 04/19 1905 BLOOD: Blood Culture - RES 04/19 1857 BLOOD: Blood Culture - RES 04/19 1759 URINE ROUT: Legionella Antigen - COLB 04/19 175 URINE ROUT: Streptococcus pneumoniae Antigen (M - COLB 04/19 175 LOWER RESP: Respiratory Culture - COLB 04/19 175 LOWER RESP: Gram Stain - COLB 04/19 1258 URINE ROUT: Urine Culture - RES Diffential Diagnosis: Substance induced mood disorder versus unspecified mood disorder Cocaine use disorder Alcohol use disorder Impression: 42-year-old [place] male presents with altered mental status status post patient reported overdose attempt by cocaine and benzodiazepine ingestion [place] [employer] [place]. At present the patient no longer endorses suicidality, however he is unsure if he would be safe if he returned to the community. He does contract for safety in the hospital but also states he may attempt to leave. Due to serious nature of suicide attempt the patient will require inpatient psychiatric hospitalization. Due to his desire to leave he will be placed on physicians emergency certificate. Provisional Treatment Plan: 1. Patient placed on PEC, he may not leave AMA. Plan for Inpatient Psychiatry admission once medically cleared. 2. Continue one-to-one sitter. 3. Please continue to monitor for signs and symptoms of benzo withdrawal. Thank you for including psychiatry in this case we will continue to follow A total of 60 minutes was spent with the patient with more than 50% of the time spent in counseling and/or coordination of care.
--- NOTE | 2017-04-20 20:29 | NUR ---
PT GEN MED HOLD. A/OX3, FOLLOWS COMMANDS, DENIES ANY PAIN AT PRESENT. 1:1 SITTER AT BEDSIDE, PT WITH SI. BREATH SOUNDS CLEAR THOUGHOUT BILATERALLY, NO SOB,COUGH OR RESP DISTRESS NOTED AT PRESENT. VS STABLE AT PRESENT. ABD SOFT, NONTENDER, NONDISTENDED, POSITIVE BOWEL SOUNDS. VOIDING. SKIN INTACT
[2017-04-21] VITALS: BP 110/68
[2017-04-21 05:42] LABS: ABSOLUTE BASOPHIL COUNT 0.1 /CUMM (0.0-0.2); ABSOLUTE EOSINOPHIL COUNT 1.2 /CUMM (0.0-0.7); ABSOLUTE GRANULOCYTE CT 7.4 /CUMM (1.4-6.5); ABSOLUTE LYMPH COUNT 2.5 /CUMM (1.2-3.4); BASOPHIL % 0.9 % (0.0-2.0); EOSINOPHIL % 9.7 % (0-5); GRANULOCYTE % 60.3 % (42.2-75.2); HEMATOCRIT 40.4 % (42-52); MEAN CORPUSCULAR HGB 31.5 PG (27.0-31.0); MEAN CORPUSCULAR HGB CONC 32.4 G/DL (33.0-37.0); MEAN CORPUSCULAR VOLUME 97.4 FL (80.0-94.0); MEAN PLATELET VOLUME 9.9 FL (7.4-10.4); PLATELET COUNT 201 /CUMM (130-400); RBC DISTRIBUTION WIDTH 13.1 % (11.5-14.5); RED BLOOD CELL CT 4.15 /CUMM (4.70-6.10); WHITE BLOOD CELL COUNT 12.2 /CUMM (4.8-10.8)
--- NOTE | 2017-04-21 06:09 | NUR ---
PT ALERT AND ORIENTED X 3. RA. VSS. DENIES PAIN. PATEINT SATFY MONITOR AT BEDSIDE. WILL CONTINUE TO MONITOR.
--- NOTE | 2017-04-21 07:18 | PN- Housestaff ---
Subjective Follow-up For: -Substance abuse -Suicidal attempt -Questionable aspiration pneumonia -Vitamin D deficiency Subjective: Afebrile, hemodynamically stable, heart rate in the 90s, and saturating well on room air. Still has a one-to-one sitter. No Acute overnight events reported. Patient laying in bed looks relaxed, comfortable and denies any current active complaints. Review of Systems Constitutional: Reports: no symptoms. Objective Last 24 Hrs of Vital Signs/I&O Vital Signs Date Time Temp Pulse Resp B/P B/P Pulse O2 O2 Flow FiO2 Mean Ox Delivery Rate 04/21 0000 98.4 95 20 110/68 96 Room Air 04/20 2200 94 Room Air Room Air 04/20 2000 95 Room Air Room Air 04/20 1428 Room Air Room Air Intake & Output 04/21 1600 04/21 0800 04/21 0000 Intake Total 120 360 Output Total 500 Balance -380 360 Intake, Oral 120 360 Number 0 Bowel Movements Output, Urine 500 Physical Exam General Appearance: Alert, Oriented X3, Cooperative, No Acute Distress HEENT: Atraumatic, PERRLA, EOMI, Mucous Membr. moist/pink Cardiovascular: Regular Rate, Normal S1, Normal S2, No Murmurs Lungs: Clear to Auscultation, Normal Air Movement Abdomen: Soft, No Tenderness Neurological: Normal Speech, Strength at 5/5 X4 Ext Extremities: No Clubbing, No Cyanosis, No Edema Assessment/Plan Assessment: This 42-year-old male with an unavailable PMH, who was found unresponsive with some oral secretions and aspiration cannot be excluded plus leukocytosis. Day1 U tox on the ED was positive for cocaine and benzodiazepine.CT scan of the head with no evidence of acute territorial infarct or hemorrhage. RFT, LFT, TFT, CK, B12, and folic acid was WNL. Day2 patient is awake, alert and oriented. He states that he overdosed benzo and cocaine as a suicidal attempts. He is hungry and asking for food. #Suicidal ideation/depression * One-to-one sitter * When necessary antipsychotic * We will follow psychiatric recommendations #AMS secondary to substance abuse(cocaine and benzodiazepine overdose) * DC fluid as he tolerated diet * Watch for withdrawal symptom * No beta mirza(cocaine overdose) * Pending Echocardiogram #Possible aspiration pneumonia * x-rays shows no signs suggestive of aspiration pneumonia, we will DC antibiotic. #Macrocytosis with a history of substance abuse * Normal B12 and folic acid * Most likely secondary to substance abuse including alcohol #Vitamin D deficiency(15) * Supplement with vitamin D Regular diet DVT prophylaxis pharmacological and mechanical Full code Problem List: 1. Polysubstance overdose 2. Leukocytosis 3. Benzodiazepine abuse 4. Cocaine abuse Pain Ratin Pain Location: NA Pain Goal: Remain pain free Pain Plan: See A&P Tomorrow's Labs & Rationales: CBC
[2017-04-21 08:00] VITALS: BP 120/74
--- NOTE | 2017-04-21 08:27 | RADIOLOGY REPORT ---
EXAMINATION: XR PORTABLE CHEST CLINICAL INFORMATION: Altered mental status. Medication overdose. Evaluate for aspiration pneumonia. COMPARISON: CXR from 04/19/2017 TECHNIQUE: Portable frontal view of the chest was obtained. FINDINGS: Again noted are linear opacities of subsegmental atelectasis in the lower lung zones. There is a new area of discoid atelectasis at the level of the minor fissure. No evidence of airspace opacification, interstitial pulmonary edema, pleural effusion or pneumothorax. Cardiac silhouette remains normal in size. The mediastinal and hilar contours are normal. The visualized bones are unremarkable. IMPRESSION: 1. No evidence of aspiration pneumonia. 2. Persistent atelectasis in lower lung zones.
--- NOTE | 2017-04-21 09:19 | PN- Pulmonary ---
Subjective HPI/Critical Care Issues: Afebrile, hemodynamically stable, heart rate in the 90s, and saturating well on room air. Still has a one-to-one sitter. No Acute overnight events reported. Patient laying in bed looks relaxed, comfortable and denies any current active complaints. Review of Systems Constitutional: Reports: no symptoms. Objective Current Medications: Current Medications Sig/Isiah Start time Last Medication Dose Route Stop Time Status Admin Albuterol Sulfate 3 ML Q4P PRN 04/20 1445 AC INH Amoxicillin/ 875 MG Q12 04/20 1308 AC 04/20 Clavulanate Potassium PO 1915 Ampicillin Sodium/ 3,000 MG Q6 04/19 1800 DC 04/20 Sulbactam Sodium IV 0509 Sodium Chloride 100 ML Ergocalciferol 50,000 IU Q168 04/26 1000 CAN PO Ergocalciferol 50,000 IU ONCE ONE 04/20 1045 DC / PO 04/20 1046 1413 Heparin Sodium 5,000 UNIT Q8 04/19 2200 AC 04/21 (Porcine) SC 0554 Magnesium Sulfate 1 GM ONCE ONE 04/20 0730 DC 04/20 Dextrose/Water 100 ML IV 04/20 1129 0828 Sodium Chloride 1,000 ML Q13H 04/20 0830 DC / IV 0829 Vital Signs & I&O Last 24 Hrs of Vitals and I&O: Vital Signs Date Time Temp Pulse Resp B/P B/P Pulse O2 O2 Flow FiO2 Mean Ox Delivery Rate 04/21 0800 Room Air /08 0800 97.8 88 20 120/74 95 Room Air /08 0000 98.4 95 20 110/68 96 Room Air / 2200 94 Room Air Room Air 04/20 2000 95 Room Air Room Air / 1428 Room Air Room Air Intake & Output 04/21 1600 06/08 0800 06/08 0000 Intake Total 120 360 Output Total 500 Balance -380 360 Intake, Oral 120 360 Number 0 Bowel Movements Output, Urine 500 Impression/Plan Impression/Plan Impression/Plan: AAO DId say that he wanted to end his life and took benzos and cocaine yesterdat IMP Suicide attempt per pt Cocaine addiction, benzo OD Sig depression prob REC Psych to follow Sitter Cont prn antipsycotics if needed psych note EKg check qtc today Watch for withdrawal Ok to the floor with a sitter Change to po augmentin for now Cxr if no infiltrate dc abx
--- NOTE | 2017-04-21 10:07 | PN- Psychiatry ---
Assessment/Plan Impression: Identifying Info: 42-year-old brought in by ambulance to the emergency department with AMS on 04/19/17. He was admitted to medicine for cocaine and benzodiazepine overdose and subsequently endorsed suicidal attempt. SUBJECTIVE Patient reports "I need help, I screwed up so many things." States he has no recollection of conversation with this sba underwriter yesterday but does confirm that it was a suicide attempt in today can confirm the medication he took was alprazolam. He states that it is presently the 1 year anniversary of his divorce which led to his overdose attempt. Reports he has been depressed for many years and that his depression predated his substance abuse. Formerly treated by Dr. Dangelo prior to the MD's arrest. This has made him suspicious of psychiatrists and hesitant to take medication which he now feels he may need. He does not feel he would like to start medication today. Dr. Dangelo had trialed him on Lexapro, Zoloft and Vyvanse to poor effect. Reports he attended rehabilitation approximately 5 years ago and then stayed in Alcoholics Anonymous for about 4 years. He attempted to attend [facility] dual diagnosis program last year but he could not afford it due to lacking insurance. Brief ROS Gait: Steady Sleep: Fair Appetite: Adequate OBJECTIVE Mental Status Exam Presentation/Appearance: Cooperative with evaluation. Hospital garb. Unkempt. Orientation: Oriented to self, place, year and situation Sensorium: Awake and alert Eye contact: Appropriate Affect: Somewhat constricted Mood: "I try to be positive" Depression: Endorses Anxiety: Endorses Thought Content: - Denies SI/HI, AH/VH, PI. Unsure if he would use again or attempt suicide again in that context. - Denies Hopeless/Helpless Thoughts Thought Process: Somewhat circumstantial at times Associations: Appropriate Speech: Rapid, pressured Judgment: Fair Insight: Fair Cognition: Memory: Short-term deficits over past few days, long term care pharmacist grossly intact Attention/Concentration: Fair Fund of Knowledge: Did not assess Abstractions: Did not assess MMSE: Did not assess ASSESSMENT 42-year-old [place] Citizen Of [place] male presents with altered mental status status post patient reported overdose attempt by cocaine and benzodiazepine ingestion followed by swimming [place]. At present the patient no longer endorses suicidality. Today he presents as somewhat pressured and is unclear if this could be attributable to personality, mood episode, or possible benzodiazepine withdrawal. Diagnosis Substance induced mood disorder versus unspecified mood disorder Cocaine use disorder Alcohol use disorder Rule out unspecified bipolar disorder, current episode hypomanic A total of 45 minutes was spent with the patient with more than 50% of the time spent in counseling and/or coordination of care. Suggestion: 1. Patient placed on PEC, he may not leave AMA. Plan for Inpatient Psychiatry admission once medically cleared. 2. Continue one-to-one sitter. 3. Please continue to monitor for signs and symptoms of benzo withdrawal. Would recommend conservative treatment with lorazepam if required. 4. If the patient does require medication for anxiety or agitation in the absence of other physiologic signs of benzo withdrawal (tremor, tachycardia, hypertension, etc) would recommend low-dose olanzapine 2.5mg Q8H PO PRN. Thank you for including psychiatry in this case we will follow until admission to inpatient psychiatry. Subjective Subjective: as above Objective Last 24 Hrs of Vital Signs/I&O Current Medications Sig/Isiah Start time Last Medication Dose Route Stop Time Status Admin Albuterol Sulfate 3 ML Q4P PRN 04/20 1445 AC INH Amoxicillin/ 875 MG Q12 04/20 1308 AC 04/20 Clavulanate Potassium PO 1915 Ampicillin Sodium/ 3,000 MG Q6 04/19 1800 DC 04/20 Sulbactam Sodium IV 0509 Sodium Chloride 100 ML Ergocalciferol 50,000 IU Q168 04/26 1000 CAN PO Ergocalciferol 50,000 IU ONCE ONE 04/20 1045 DC 04/20 PO 04/20 1046 1413 Heparin Sodium 5,000 UNIT Q8 04/19 2200 AC 04/21 (Porcine) SC 0554 Magnesium Sulfate 1 GM ONCE ONE 04/20 0730 DC 04/20 Dextrose/Water 100 ML IV 04/20 1129 0828 Sodium Chloride 1,000 ML Q13H 04/20 0830 DC 04/20 IV 0829 Laboratory Tests 04/21/17 0455: Anion Gap 8, Estimated GFR > 60, BUN/Creatinine Ratio 16.7, CBC w Diff NO MAN DIFF REQ, RBC 4.15 L, MCV 97.4 H, MCH 31.5 H, RDW 13.1, MPV 9.9, Gran % 60.3, Lymphocytes % 20.7, Monocytes % 8.4, Eosinophils % 9.7 H, Basophils % 0.9, Absolute Granulocytes 7.4 H, Absolute Lymphocytes 2.5, Absolute Monocytes 1.0 H, Absolute Eosinophils 1.2, Absolute Basophils 0.1, PUBS MCHC 32.4 L Vital Signs Date Time Temp Pulse Resp B/P B/P Pulse O2 O2 Flow FiO2 Mean Ox Delivery Rate 04/21 0800 Room Air 04/21 0800 97.8 88 20 120/74 95 Room Air 04/21 0000 98.4 95 20 110/68 96 Room Air 04/20 2200 94 Room Air Room Air 04/20 2000 95 Room Air Room Air 04/20 1428 Room Air Room Air Intake & Output 04/21 1600 /08 0800 /08 0000 Intake Total 120 360 Output Total 500 Balance -380 360 Intake, Oral 120 360 Number 0 Bowel Movements Output, Urine 500 Patient 169 lb Weight
[2017-04-21 15:00] VITALS: BP 110/78
--- NOTE | 2017-04-21 15:00 | NUR ---
NURSING NOTE: PT ARRIVED TO FLOOR AT 1450 FROM [facility]. PT A&O, VSS CHARTED. OOB INDEPENDENTLY. CALM AND COOPERATIVE. 1:1 SITTER AT BEDSIDE. PT ORIENTED TO ROOM AND CALL HASKINS. WILL CONTINUE TO MONITOR.
--- NOTE | 2017-04-21 15:29 | Transfer of Care Summary ---
Hospital Course Course Hospital Course: 42-year-old male with no significant PMH who presented to [facility] ED after his Landlord found him lying on his front porch unconscious with a mouth full of secretions. On the way to the hospital he was given Narcan 0.8 mg twice with no response. On admission patient sleepy but arousable to follow stimuli but drifts back to sleep. On the ED his U tox was positive for cocaine and benzodiazepine. Suicidal attempts and substance abuse On the second day, He woke up from sleep he states that he tried to commit suicide by taking 45 tablets of alprazolam. Emergent psych consult was placed. One-to-one sitter was ordered. Next team please Watch for withdrawal symptom. patient cannot leave AMA. Beta mirza should not be used given cocaine overdose. Make sure to check the Pending Echocardiogram. Questionable aspiration pneumonia. On presentation, patient was unresponsiveness with large amount of oral secretion. chest x-ray was showing Minimal atelectasis or scarring bilateral lung bases. Based on that there was a suspicion of aspiration pneumonia. She was started in Unasyn switched on date 2 to Augmentin. On the second day when the x-ray came back negative for infiltration antibiotic was DC'd. Nothing for next team to do in regard to the pneumonia Vitamin D deficiency(15). Patient was found to have low vitamin D on admission he was given vitamin D supplements. Patient should be instructed to follow with his primary care doctor post discharge to further address vitamin D deficiency Regular diet DVT prophylaxis pharmacological and mechanical Full code Assessment/Plan: * Patient placed on PEC, he may not leave AMA * Continue one-to-one sitter. * low-dose olanzapine 2.5mg Q8H PO PRN for anxiety or agitation * Watch for withdrawal * Follow psych recommendations
--- NOTE | 2017-04-21 15:41 | ECHOCARDIOGRAM REPORT ---
INDIGO SELLERS Age: 42 : 1975 Gender: M Exam Date: 04/20/2017 14:59 Exam Location: [facility] Ht (in): 69 Wt (lb): 168 BSA: 1.93 BP: 104 / 63 Ordering Physician: LORRAINE LOAIZA M Referring Physician: LORRAINE LOAIZA MD Technologist: Jania Mcnamara [facility] Room Number: 104 Indications: INFECTIVE ENDOCARDITIS Rhythm: Sinus Technical Quality: Good FINDINGS Left Ventricle Normal left ventricular size, wall thickness and systolic function with no obvious regional wall motion abnormalities. Normal left ventricular diastolic filling pattern for age. The ejection fraction is visually estimated at >65 %. Right Ventricle The right ventricle is normal in size and function. Right Atrium The right atrium is normal in size. Left Atrium The left atrium is normal in size. The interatrial septum is intact. Mitral Valve The mitral valve is normal in structure and function. There is trace to mitral regurgitation. Aortic Valve Structurally normal aortic valve without significant sclerosis or stenosis. There is no aortic regurgitation. Tricuspid Valve The tricuspid valve is normal in structure and function. There is mild tricuspid regurgitation. Pulmonary artery systolic pressure is normal. Pulmonic Valve Structurally normal pulmonic valve. There is trace pulmonic regurgitation. Pericardium Normal pericardium without effusion. No pleural effusion. Great Vessels Normal aortic root dimension. The aortic arch and great vessels are well seen and are normal. CONCLUSIONS No significant chamber abnormalities. No significant valve abnormalities. Normal transthoracic echocardiogram. Physiologic valvular regurgitation. No evidence of valvular vegetations seen on this study. ZAHEER may be more sensitive if clinically indicated. Popeye Fuentes M.D. (Electronically Signed) Final Date: 21 April 2017 15:40 MEASUREMENTS (Male / Female) Normal Values 2D ECHO LV Diastolic Diameter PLAX 4.4 cm 4.2 - 5.9 / 3.9 - 5.3 cm LV Systolic Diameter PLAX 2.5 cm 2.1 - 4.0 cm LV Fractional Shortening PLAX 43.2 % 25 - 46 % LV Ejection Fraction 2D Teich 74.5 % IVS Diastolic Thickness 1.0 cm LVPW Diastolic Thickness 1.1 cm LV Relative Wall Thickness 0.5 RV Internal Dim ED PLAX 3.0 cm 1.9 - 3.8 cm LVOT Diameter 2.2 cm Aortic Root Diameter 3.2 cm LA Systolic Diameter LX 3.7 cm 3.0 - 4.0 / 2.7 - 3.8 cm LA Volume 43.0 cm 18 - 58 / 22 - 52 cm Ascending Aorta Diameter 3.2 cm DOPPLER AV Peak Velocity 145.0 cm/s AV Peak Gradient 8.4 mmHg AV Mean Velocity 104.0 cm/s AV Mean Gradient 5.0 mmHg AV Velocity Time Integral 25.7 cm LVOT Peak Velocity 138.0 cm/s LVOT Peak Gradient 7.6 mmHg LVOT Mean Velocity 79.0 cm/s LVOT Mean Gradient 3.0 mmHg LVOT Velocity Time Integral 21.7 cm LVOT Stroke Volume 82.5 cm AV Area Cont Eq vti 3.2 cm AV Area Cont Eq pk 3.6 cm MV Peak Velocity 118.0 cm/s MV Peak Gradient 5.6 mmHg MV Mean Velocity 78.0 cm/s MV Mean Gradient 3.0 mmHg Mitral E Point Velocity 109.0 cm/s Mitral A Point Velocity 75.5 cm/s Mitral E to A Ratio 1.4 MV PHT Velocity 122.0 cm/s MV Deceleration [place] 590.0 cm/s MV Pressure Half Time 62.0 ms MV Area PHT 3.5 cm MV Deceleration Time 217.0 ms TR Peak Velocity 244.0 cm/s TR Peak Gradient 23.8 mmHg Right Atrial Pressure 5.0 mmHg Pulmonary Artery Systolic Pressu 28.8 mmHg Right Ventricular Systolic Press 28.8 mmHg PV Peak Velocity 114.0 cm/s PV Peak Gradient 5.2 mmHg PV Mean Velocity 82.2 cm/s PV Mean Gradient 3.0 mmHg PV Velocity Time Integral 24.8 cm LV E' Lateral Velocity 11.5 cm/s Mitral E to LV E' Lateral Ratio 9.5 LV E' Septal Velocity 10.5 cm/s Mitral E to LV E' Septal Ratio 10.4
[2017-04-21 21:42] VITALS: BP 106/62
[2017-04-22 06:08] VITALS: BP 110/82
--- NOTE | 2017-04-22 07:11 | PN- Housestaff ---
See Addendum Subjective Follow-up For: Substance abuse Suicidal attempt Vitamin D deficiency Subjective: Patient seen and examined at bedside this AM. He is sitting up comfortably in bed in no acute distress. He denies SI/HI/thoughts to harm himself or others. He reports that the reason he overdosed is because he is depressed and he is depressed about his substance use. He does not feel like himself when he uses and hopes to participate in community IOPs for continued management of substance use. Patient is aware that he will require inpatient psychiatric help. Discussion with Psych Rebel SMITH suggests that patient will be transferred to [facility] either later today or tomorrow as he is medically clear. Review of Systems Constitutional: Denies: chills, fever, malaise. EENTM: Denies: blurred vision, visual changes, hearing changes, nasal congestion. Cardiovascular: Denies: chest pain, palpitations. Respiratory: Reports: short of breath (Chronic). Denies: cough. Gastrointestinal: Denies: abdominal pain, nausea, vomiting. Genitourinary: Denies: dysuria, hematuria. Musculoskeletal: Denies: back pain, joint swelling. Skin: Denies: lesions. Neurological/Psychological: Reports: depressed. Denies: confusion, headache. Hematologic/Endocrine: Denies: bruising, bleeding. Objective Last 24 Hrs of Vital Signs/I&O Vital Signs Date Time Temp Pulse Resp B/P B/P Pulse O2 O2 Flow FiO2 Mean Ox Delivery Rate 04/22 0608 97.9 83 20 110/82 95 Room Air 04/21 2142 98.1 88 22 106/62 97 Room Air 04/21 1500 98.5 82 18 110/78 98 Room Air Room Air 04/21 1328 Room Air Room Air Physical Exam General Appearance: Alert, Oriented X3, Cooperative, No Acute Distress Skin: No Rashes, No Significant Lesion Skin Temp/Moisture Exam: Warm/Dry HEENT: Atraumatic, PERRLA, EOMI, Mucous Membr. moist/pink Neck: Supple, No JVD Lymphatic: Cervical nl Cardiovascular: Regular Rate, Normal S1, Normal S2, No Murmurs Lungs: Normal Air Movement Abdomen: Normal Bowel Sounds, Soft, No Tenderness Neurological: Normal Speech, Normal Tone Extremities: No Clubbing, No Cyanosis, No Edema, No Tenderness/Swelling Vascular: Pulses Symmetrical Current Medications: Current Medications Sig/Isiah Start time Last Medication Dose Route Stop Time Status Admin Albuterol Sulfate 3 ML Q4P PRN 04/20 1445 DC INH Amoxicillin/ 875 MG Q12 04/20 1308 DC 04/21 Clavulanate Potassium PO 1025 Heparin Sodium 5,000 UNIT Q8 04/19 2200 AC 04/21 (Porcine) SC 2146 Olanzapine 2.5 MG Q8P PRN 04/21 1430 CAN PO Last 24 Hrs of Lab/Isreal Results Last 24 Hrs of Labs/Mics: Laboratory Tests 04/22/17 0605: Anion Gap 9, Estimated GFR > 60, Glucose 81, Calcium 9.1, Phosphorus 3.6, Magnesium 2.3, Total Bilirubin 0.4, AST 21, ALT 26, Albumin 3.9, CBC w Diff NO MAN DIFF REQ, RBC 4.27 L, MCV 97.4 H, MCH 31.7 H, RDW 13.2, MPV 10.2, Gran % 46.6, Lymphocytes % 28.4, Monocytes % 9.8 H, Eosinophils % 14.5 H, Basophils % 0.7, Absolute Granulocytes 4.3, Absolute Lymphocytes 2.6, Absolute Monocytes 0.9 H, Absolute Eosinophils 1.3, Absolute Basophils 0.1, PUBS MCHC 32.6 L Orders ECHO Findings: CONCLUSIONS No significant chamber abnormalities. No significant valve abnormalities. Normal transthoracic echocardiogram. Physiologic valvular regurgitation. Radiology Findings: CXR: IMPRESSION: 1. No evidence of aspiration pneumonia. 2. Persistent atelectasis in lower lung zones. 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 The possibility of a cerebellar dysplasia cannot be definitively excluded on basis of this examination. A brain MRI can be obtained for better anatomic characterization of this finding. Otherwise normal CT scan of the head with no evidence of acute territorial infarct or hemorrhage. Assessment/Plan Assessment: Mr. Worrell is a 42-year-old male with PMH depression, polysubstance abuse and previous drug overdose who was admitted to the ICU after cocaine and benzodiazepine overdose after a suicide attempt. The patient was stabilized in the ICU and transferred to the general medicine floor for further management. Below is the problem list and plan while on the general medical service: #Suicidal ideation/depression * One-to-one sitter to continue * When necessary antipsychotic * Continue to follow psychiatric recommendations * Patient will require inpatient pyschiatric treatment, will likely be discharged to [facility] this afternoon or tomorrow * PEC form signed and in the chart #AMS secondary to substance abuse (cocaine and benzodiazepine overdose) * IMPROVED, patient AAOx3 without altered mentation noted * Continue to watch for withdrawal symptoms, may use low dose lorazepam if required * Per psychiatry, if Argiris does require medication for anxiety/agitation in the absence of other physiologic signs of benzo withdrawal (tremor, tachycardia, hypertension, etc) would recommend low-dose olanzapine 2.5mg Q8H PO PRN * Avoid beta blockers (cocaine overdose) * Echocardiogram performed and unremarkable #Possible aspiration pneumonia * CXR on admission showed bilateral atelectasis with possible scarring at the bases * Follow up chest Xray shows no signs suggestive of aspiration pneumonia, we will DC antibiotic. #Macrocytosis with a history of substance abuse * Normal B12 and folic acid levels noted on labs * Most likely secondary to substance abuse including alcohol * Continue to tariff counsel patient on alcohol cessation and drug cessation #Vitamin D deficiency (15) * Supplement with vitamin D * Continue supplementation after discharge Regular diet DVT prophylaxis pharmacological and mechanical Full code Problem List: 1. Cocaine abuse 2. Benzodiazepine abuse 3. Leukocytosis 4. Polysubstance overdose Pain Ratin Pain Location: n/a Pain Goal: Remain pain free Pain Plan: PRN per pain pathway. Tomorrow's Labs & Rationales: None.
[2017-04-22 08:26] LABS: ABSOLUTE BASOPHIL COUNT 0.1 /CUMM (0.0-0.2); ABSOLUTE EOSINOPHIL COUNT 1.3 /CUMM (0.0-0.7); ABSOLUTE GRANULOCYTE CT 4.3 /CUMM (1.4-6.5); ABSOLUTE LYMPH COUNT 2.6 /CUMM (1.2-3.4); ABSOLUTE MONOCYTE COUNT 0.9 /CUMM (0.10-0.60); BASOPHIL % 0.7 % (0.0-2.0); EOSINOPHIL % 14.5 % (0-5); GRANULOCYTE % 46.6 % (42.2-75.2); HEMATOCRIT 41.6 % (42-52); MEAN CORPUSCULAR HGB 31.7 PG (27.0-31.0); MEAN CORPUSCULAR HGB CONC 32.6 G/DL (33.0-37.0); MEAN CORPUSCULAR VOLUME 97.4 FL (80.0-94.0); MEAN PLATELET VOLUME 10.2 FL (7.4-10.4); PLATELET COUNT 224 /CUMM (130-400); RBC DISTRIBUTION WIDTH 13.2 % (11.5-14.5); RED BLOOD CELL CT 4.27 /CUMM (4.70-6.10); WHITE BLOOD CELL COUNT 9.1 /CUMM (4.8-10.8)
--- NOTE | 2017-04-22 09:25 | Discharge Summary ---
Visit Information Visit Dates Admission Date: 04/19/17 Discharge Date: 04/23/2017 Hospital Course Course Attending Physician: FAY RODRIGUEZ,AFTAB Yoder Primary Care Physician: ROLANDO WOODY MD Hospital Course: Hospital Course: 2-year-old [place] male presents with altered mental status status post patient reported overdose attempt by cocaine and benzodiazepine ingestion followed by swimming [place]. Patient was admitted suicidal attempt and drug overdose. Suicidal attempts and substance abuse: on the admission day patient was lethargic and unarousible, however, he did not required intubation and life support but was admitted to ICU for close monitoring. He was assessed by psychaitric service who started him on low dose lorazepam and olanzapin for agitation and benzodiazepam withdrawl (as needed). Patient had an uneventful and safe medically suppervised dotox and he was transferred to [facility] for continuation of his care before transfer to in patient psych. Questionable aspiration pneumonia. Based on presentation and suspisious, minimal findings in his initial CXR there was a question about aspiration pneumonia and he was treated empirically for a short time. Aspiration pneumonia was r/o and Abx was stopped. Allergies: Coded Allergies: UNOBTAINABLE (04/19/17) Disposition Summary Disposition Principal Diagnosis: coccaine over dose Additional Diagnosis: benzo over dose Discharge Disposition: in-patient psych Discharge Instructions General Discharge Information Code Status: Full Code Patient's Diet: Heart Healthy diet Patient's Activity: as tolerated Follow-Up Instructions/Appts: please follow up with your PCP w/ in one week after D/C Copies To: ROLANDO WOODY MD
[2017-04-22] MEDS ORDERED: VITAMIN D1000 UNIT PO (11:32)
--- NOTE | 2017-04-22 11:35 | Patient Discharge Instructions ---
Discharge Instructions General Discharge Information You were seen/treated for: Suicide attempt Depression Cocaine and benzo abuse/overdose Tobacco abuse Special Instructions: Please follow up with Dr. Jahaira MD within 7 days of discharge from inpatient treatment. Please take all medications as directed. Please return to the hospital if you notice any harmful thoughts, worsening depression or suicidal ideations. Diet Recommended Diet: Regular Activity Activity Self Limited: Yes Acute Coronary Syndrome Inclusion Criteria At DC or during hospital stay patient has or had the following: ACS DIAGNOSIS No Discharge Core Measures Meds if any: Prescribed or Continued at Discharge Meds if any: NOT Prescribed or Continued at Discharge Congestive Heart Failure Inclusion Criteria At DC or during hospital stay patient has or had the following: CHF DIAGNOSIS No Discharge Core Measures Meds if any: Prescribed or Continued at Discharge Meds if any: NOT Prescribed or Continued at Discharge Cerebrovascular accident Inclusion Criteria At DC or during hospital stay patient has or had the following: CVA/TIA Diagnosis No Discharge Core Measures Meds if any: Prescribed or Continued at Discharge Meds if any: NOT Prescribed or Continued at Discharge Venous thromboembolism Inclusion Criteria VTE Diagnosis No VTE Type NONE VTE Confirmed by (Test) NONE Discharge Core Measures - Per Current guidelines, there needs to be overlap - treatment for the first 5 days of Warfarin therapy. - If discharged on Warfarin prior to 5 days of - overlap therapy, the patient will need to be - assessed for post discharge needs including - *Post discharge parental anticoagulation - *Warfarin and/or parental anticoagulation education - *Follow up date to check INR post discharge At least 5 days overlap therapy as Inpatient No Meds if any: Prescribed or Continued at Discharge Note: Overlap Therapy is Warfarin and Anticoagulant Meds if any: NOT Prescribed or Continued at Discharge
[2017-04-22 14:27] VITALS: BP 120/76
--- NOTE | 2017-04-22 14:38 | NUR ---
THE FOLLOWING PT'S BELONGINGS WERE PUT IN SAFE: A BELT AND A PACK OF CIGARETTES WITH 5 CIGARETTES IN IT. PT DENIES HAVING A DREDGE RUNNER. THE BELONGINS ARE IN THE SAFE, THE RECEIPT AND PAPERWORK FOR IT ARE IN THE CHART.
--- NOTE | 2017-04-22 14:40 | NUR ---
PT EXPRESSED DESIRE TO BE DISCHARGED FROM HOSPITAL TODAY, HE HAS TO GO TO WORK TOMORROW. DR WYMAN NOTIFIED. EXPLAINED TO PATIENT PEC STATUS. PT IS NOW AGREEABLE TO GOING TO [facility].
--- NOTE | 2017-04-22 16:49 | Incdntl Nt Psy ---
Incidental Note Notation: Late entry: At 12:45 discussed pts insurance with Case Management. They did not have patient's temporary Husky ID, unsure if one was acquired. Reviewed medical record which show insurance agency sales manager saw pt. Called Heather at [phone] and left message to please call back with number.
== END 2017-04-22 17:41 | DRG 816 ==
LOC: ERH 12:33 → CRI 17:14 → 2NB 17:14 → ERHI 17:14 → 2NB 17:14 → ENRESERV 17:47 → ENTRNSPT 19:42 → CRI 20:15 → CMPTRNSPT 21:03 → 2NB 04-21 14:52 → ENPENDDIS 04-22 14:10 → 2NB 04-22 17:41
PROVIDERS: Internal Medicine; Physician Assistant Medical; Student in an Organized Health Care Education/Training Program; ADMIT Internal Medicine Pulmonary Disease
DX: T40.5X2A Poisoning by cocaine, intentional self-harm, initial encounter (principal); T42.4X2A Poisoning by benzodiazepines, intentional self-harm, initial encounter; R40.20 Unspecified coma; Y92.009 Unspecified place in unspecified non-institutional (private) residence as the place of occurrence of the external cause; J69.0 Pneumonitis due to inhalation of food and vomit; F32.9 Major depressive disorder, single episode, unspecified
CPT/HCPCS: 2NBP; CCU; 36415; 80307; 81001; 82436; 86803; 87040; 87070; 87086; 87389; 87449; 87450; 93005; 93010; 93306; 96374; 99291; G0480; J1644; J2310

== ENCOUNTER 2017-04-22 13:08 | Inpatient (IN) | payer SELFPAY ==
[~2017-04-22] VITALS: Ht 172.7 cm; Wt 74.2 kg
[~2017-04-22 13:08] MED LIST: VITAMIN D1000 UNIT PO
--- NOTE | 2017-04-22 14:14 | IP CRISIS DIAG ASSESS PSYCH ---
Diagnostic Assessment Basic Assessment Insurance Authorization: Insurance #1: Insurance name: SELF-PAY Phone number: Policy number: Group number: Authorization number: Primary Care Physician: Patient's PCP: ROLANDO WOODY MD PCP's Patient's Quote: "I need to get strong again" Present Illness: Patient was found by his landlord on 04/19/2017 unresponsive lying on his front porch. Ambulance was called and he was brought to [facility] emergency department. Narcan was administered in the field to poor effect. Patient was stabilized and admitted to the critical care unit. On second day of hospitalization the patient reported to house staff that he consumed 40-50 pills of an unknown benzodiazepine, later reported to be xanax, in attempt to kill himself because he could not stop using cocaine. Additionally, he later reported that it was the 1 year anniversary of his divorce from the woman he moved from [facility] to be with. On first interview he reported "I don't know how I got here." He stated he had been consuming large quantities of crack cocaine spending $200,000 in the past year. He has had a chronic pattern of relapse, at times achieving up to a month sober over the past year however he has been unable to stop using. Due to his frustration and the large quantity of money is spent on cocaine he attempted to end his life by consuming xanax. He states he took these pills and then went swimming in the [place] "to relax... I did not jump in." He does not know how he ended up back at his residence. He reports that he had a similar suicide attempt in June of last year which led to an inpatient hospitalization at [facility]. After that hospitalization he was referred to [facility] which he could not attend do to lack of insurance. Verbalized understanding of need to stay in hospital but also stated he wanted to leave, "I don't know doc, I might jump out of the window, I got stuff to do." Verbalized understanding of PEC process and the need for one-to-one sitter and contracted for safety in the hospital. He stated he would not like to take any medication. He just needs to "get strong again." On second day in hospital patient could not recall previous interview and provided more history. He presented with same complaints but appeared somewhat pressured and more tangential. He reported he was formerly treated by Dr. Dangelo prior to the MD's arrest. This has made him suspicious of psychiatrists and hesitant to take medication which he now feels he may need. He did not feel he would like to start at that point. Dr. Dangelo had trialed him on Lexapro, Zoloft and Vyvanse to poor effect. At present the patient appears to be hypomanic. Psychomotor agitation noted at time with pt frequently walking around unit with his sitter. His thought process and speech remain tangential. He is ambivalent about inpatient hospitalization and was afraid that he would have to stay for over a month. He was educated on average length of stay became somewhat more agreeable but will remain on the [facility]. She states he would like to go to [facility] in [place] once he is done with psychiatric hospitalization. Patient's Address: [address] [place] [address] Other Phone Number: Who Do You Live With? Patient/Self Feel Safe Where You Live? Yes Feel Safe in Your Relationship Yes Marital Status: Do You Have Children? Yes Ages? 8, 12 , live with mother Primary Language? Japanese Language(s) Spoken At Home: Tamazight, Japanese Family/Informants Interviewed: no family/collateral ID'd Allergies - Coded Allergies: UNOBTAINABLE (04/19/17) Current Medications - Scheduled Medications Cholecalciferol (Vitamin D3) (Vitamin D) 1,000 UNIT TABLET 1 TAB PO DAILY Suppplement #30 TAB Prescribed by SANAM WYMAN MD on 04/22/17 Consequences of Psych Med Use: no psych meds at present Lab Results: Laboratory Tests 04/21/17 0455: Anion Gap 8, Estimated GFR > 60, BUN/Creatinine Ratio 16.7, CBC w Diff NO MAN DIFF REQ, RBC 4.15 L, MCV 97.4 H, MCH 31.5 H, RDW 13.1, MPV 9.9, Gran % 60.3, Lymphocytes % 20.7, Monocytes % 8.4, Eosinophils % 9.7 H, Basophils % 0.9, Absolute Granulocytes 7.4 H, Absolute Lymphocytes 2.5, Absolute Monocytes 1.0 H, Absolute Eosinophils 1.2, Absolute Basophils 0.1, PUBS MCHC 32.4 L Toxicology Screen Completed? Yes Results: positive (coke, BZD) Symptoms of Use: Poor impulse control, impaired judgement Past History Past Medical History Medical History: None/Denies Past Surgical History Surgical History none Abuse/Trauma History Trauma History/Current Trauma: Denies Legal History Current Legal Status: Pt states he is mandated to take 18 substance use classes btu it is unclear for what offense. Review of [place] Judicial lookup reveals one pending case that is statutoraly sealed Have you ever been arrested? Yes Pending Court Dates: Yes Psychosocial History Strengths/Capabilities: Desire to stop using Physical Limitations (Interventions): Pattern of relapse, multiple suicide attempts Psychiatric Treatment History Psych Treatment Psychiatric Treatment Yes Inpatient Treatment Yes Outpatient Treatment Yes Location of Treatment [facility] 2015; Dr. Dangelo several years ago Reason for Treatment s/p suicide attempt; depression Response to Treatment Poor Diagnosis by History: Unknown Risk Factors: high anxiety/distress, history of suicide atmpts, SA/MH hospitalized, substance abuse, isolate/no social support, poor impulse control, lives alone, male, limited support Substance Use/Abuse History Drug Use/Abuse minimum 12mo Hx Substances Used/Abused Yes Substance Used/Abused Benzodiazepines (and coke) Last Used 04/18/17 Route of use smoke Substance Abuse Treatment Substance Abuse Treatment Past Substance Abuse TX Yes Inpatient Treatment Yes (5+ years ago) Outpatient Treatment Yes Location of Treatment pt unsure of inpatient name; [facility]; AA Reason for Treatment Coke Education History 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 Preferred Learning Style: experiential Current Mental Status Mental Status Orientation: Person, Place, Situation Affect: Constricted Speech: Pressured Neuro-vegetative: Concentration Poor Appearance Appearance- Dress/Hygiene: Somewhat lonely as so Behaviors Thought Process: Tangential Thought Content: WNL Memory: Impaired Insight: Poor SI/HI Risk Assessment - Minimum 6mo History- Past Suicidal Ideation/Attempts Yes Current Suicidal Ideation/Att No Past Homicidal Ideation/Att: No Current Homicidal Ideation/Attempts No Degree of Intent: Self Destructive/No Danger To: Self Gravely Disabled: Lack of Insight, Poor Impulse Control, Poor Judgment Risk Factors: high anxiety/distress, history of suicide atmpts, SA/MH hospitalized, substance abuse, isolate/no social support, poor impulse control, lives alone, male, limited support Lethality Ratin (most severe) Needs/Init TX Plan/Goals: Start medications to treat symptoms of Bipolar Increase social support system Link to intermediate teacher provider for medication management and therapy Learn coke refusal skills and coping skills AUDIT-C Questionnaire: AUDIT-C Questionnaire: Response Value ETOH use in the past year 2-4 times/month 2 # drinks typical/day 1 or 2 0 6 or > drinks per occasion Less than monthly 1 Total 3 DSM5/PS Stressors/Medical Prob Diagnosis' (DSM 5, Stressors, Medical): (F31.9) Unspecified Bipolar Disorder, current episode hypomanic (F14.10) Cocaine Use Disorder (F13.10) Sedative Hypnotic Use Disorder Financial Divorce (1 year ago) Social Isolation Anemia due to substance abuse
[2017-04-22 20:04] VITALS: BP 135/64
--- NOTE | 2017-04-23 04:52 | NUR ---
PT UP X 1 IN THE NIGHT FOR A SNACK. PT WITH MINIMAL WITHDRAWAL SYMPTOMS.
[2017-04-23 07:48] VITALS: BP 115/57
--- NOTE | 2017-04-23 11:07 | CPS MD/APRN INITIAL ASSE PSYCH ---
Psychiatric Admission Neighborhood Coordinator's Note Reviewed: Yes Patient Seen and Examined: Yes Identifying Information: Reese Worrell, 42yo male Chief Complaint: overdosed on xanax Reaction to Hospitalization: agreeable. Wants to go home soon History of Present Illness Onset of Illness: Patient was found by his landlord on 04/19/2017 unresponsive lying on his front porch. He reported to house staff that he consumed 40-50 pills of an unknown benzodiazepine, later reported to be xanax, in attempt to kill himself because he could not stop using cocaine. He reported that it was the 1 year anniversary of his divorce from the woman he moved from [facility] to be with. He had been consuming large quantities of crack cocaine spending $200,000 in the past year. He has had a chronic pattern of relapse, at times achieving up to a month sober over the past year however he has been unable to stop using. Due to his frustration and the large quantity of money is spent on cocaine he attempted to end his life by overdosing on xanax. He states he took these pills and then went swimming in the [employer] "to relax... I did not jump in." He does not know how he ended up back at his residence. He reports that he had a similar suicide attempt in June of last year which led to an inpatient hospitalization at [facility]. After that hospitalization he was referred to [facility] which he could not attend do to lack of insurance. On interview today he reports feeling better. He agrees he needs to quit using cocaine. He wants to go to an outmoitct tprogram. He denies current si/hi. Also reported he will quit tobacco. He smokes 1 pack a day. He agrees to try the nicorete gum He also reported feeling that neurontin is helping him a lopt. I feel fine "normal" for th efirst time in a year. Circumstances Leading to Admission: suicidal attemtp Problem(s) Justifying Need for Admission: recent suicidal attemtp Copcaine abuse Depression Bipolar disorder Past Psychiatric History Past Diagnosis(es)- if any: Reports hx of bipolar disorder. 1 previosu suicidal attemtpo last year. No outpatien ttreatment. Not taking any meds. Past Precipitating Factors- if any: divorce last year - Include inpatient and outpatient treatment Treatment History: 1 previous adnisison last year History of Suicide Attempts or Gestures 1 suicidal attemtp Substance Abuse History: Long hx of cocaine abuse. Reports expending more than [phone] dollars ion madelin in the last year. 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: NONE History of MRSA: No History of VRE: No History of CDIFF: No Surgical History Surgical History: none Psychiatric Family/Social Hx Family History Psychiatric Illness: father w alcohol abuse Substance Use: father alcohol Suicides: no Social History Living Situation: own home, own business Significant Relationships (family/friends): last year Education: na 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 - #1 Recognizing dangerous situations. - #2 Coping Skills. - #3 Basic information about quitting. Status of Tobacco Cessation Counseling: #1, #2 AND #3 Completed Cessation Med Status Nicotine Gum Ordered Alcohol Screening - ETOH screen POS if BAL >=80 or Audit-C>= M4/F3 Audit-C Score from Diag Assess: 3 Alcohol Use Screening Results: Neg per Audit C &/or BAL - If ETOH counseling indicated - the following topics are required. - #1 Express concern about the patient's - drinking at unhealthy levels, include informing - of national norms for moderate drinking: - men <= 14 drinks/week, max 4 drinks/occasion - women <= 7 drinks/week, max 3 drinks/occasion - #2 Providing feedback, including linking alcohol to - negative physical effects (liver injury, hypertension) - negative emotional effects (relationship problems and - depression) - negative occupational consequences (reduced work - performance) - #3 Advising the patient to abstain from alcohol or - to drink below national norms for moderate drinking - (as listed above). Status of ETOH Use Counseling: N/A B/C NO ETOH Use Metabolic Screening - Screen if on a Neuroleptic Medication - Metabolic screening should include: - Blood Pressure, BMI, Glucose or Hgb A1c, & a - Lipid profile from within the past 365 days. Exam and Plan Mental Status Examination Ambulation Status: ambulatory Appearance: using scrubs Attitude towards examiner: coop Psychomotor activity: mild psychomotor agitation Behavior: in control Quality of speech: nornal Affect: reactive, normal range Mood: ok Suicidal Ideation: denies current Homicidal Ideation: denies Hallucinations: none Paranoid/Delusional Material: denies Difficulties with thought organization: logiacal Insight: improving Judgment: fair Orientation: x3 Cognition: intact Memory Function: intact Estimate of intellectual functioning: average Assets/Strengths Patient Identified Assets/Strengths: hard working Impression/Plan - Include all active medical diagnosis that require tx DSM 5 Diagnosis(es): Cociane use disorder severe Bipolar diusorder mre mixed - Initial Tx Plan for Active Psych & Medical Conditions Treatment Plan: admit to [place] [id number] continue w gabapentin dc palns to be reviewed by team - Factors that would help patient function - in a less restrictive setting. Factors: no si/hi. Motivated to quit cociane use
[2017-04-23 12:03] VITALS: BP 113/64
--- NOTE | 2017-04-23 14:06 | NUR ---
WENT TO GROUP AND PARTICIPATED FULLY. MOOD IS STABLE EUTHYMIC AFFECT. DENIED THOUGHTS OF SELF HARM WHEN ASKED. SPENT SOME TIME RESTING IN ROOM.
[2017-04-23 15:28] VITALS: BP 121/58
--- NOTE | 2017-04-23 15:54 | PN- Att Addend ---
Attending Addendum Attending Brief Note 42M admitted initially to ICU for cocaine and benzo overdose [place], transferred to general medicine floors and stabilized. Initial suspicion of aspiration pneumonia but patient did very well and antibiotics were stopped. Managed by psychiatry on the floors and now trasnferred to [facility] for further management of depression, polysubstance abuse, and SI. Current Medications Sig/Isiah Start time Last Medication Dose Route Stop Time Status Admin Cholecalciferol 1,000 IU DAILY 04/23 1000 AC 04/23 PO 0852 Gabapentin 300 MG TID 04/23 1000 AC 04/23 PO 0851 Gabapentin 200 MG Q2 HRS NEEDED PRN 04/23 0030 AC PO Patient to be managed by psychiatry. No further medicine recommendations at this time. Please reconsult if medical issue arises.
[2017-04-23 20:41] VITALS: BP 121/66
--- NOTE | 2017-04-23 21:32 | NUR ---
PT HAS BEEN SOCIAL AND PLEASANT ON UNIT TOWARDS STAFF AND PEERS. HE HAS A SLIGHTLY BRIGHTENED AFFECT AND CAN SEEM ON THE BORDER OF HYPERVERBALL AND DRAMATIC STORIES.
--- NOTE | 2017-04-24 06:03 | NUR ---
PT SLEPT. PT SOMEWHAT ELEVATED. PT DIFFICULT TO UNDERSTAND AT POINTS DUE TO LANGUAGE BARRIER.
[2017-04-24 07:51] VITALS: BP 98/57
--- NOTE | 2017-04-24 10:20 | CP SOUTH PROGRESS NOTE PSYCH ---
Psych (Inpt) Progress Note Progress Note Include the following elements, when applicable: Involvement in the active treatment of the patient with behavioral observations of the patient and the patient's response to the treatment. Review of the ongoing treatment process in the context of the treatment plan. Indication of how multi-disciplinary staff members are carrying out the treatment plan. Plans for future interventions and recommendations for revision of the treatment plan. Liaison with other physicians/providers. Progress Note: discussed this patient's progress to date, current mental status, treatment process in the context of the treatment plan, and discharge planning with staff/ team in the daily morning inpatient team meeting. I also met with the patient myself in individual session. Patient reports feeling much better. He is denying any suicidal or homicidal ideation. He is very happy with gabapentin. He feels stable, He is motivated. Vital Signs Date Time Temp Pulse Resp B/P B/P Pulse O2 O2 Flow FiO2 Mean Ox Delivery Rate 04/24 0751 97.5 81 98/57 04/23 2041 98.0 85 121/66 04/23 1528 90 121/58 04/23 1203 88 113/64 Patient is alert, oriented, cooperative with the interview calm. Mood described as feeling better. Affect is appropriate to good. Though process organized, he is denying any suicidal or homicidal ideation. No overt delusions. No hallucinations. Insight and judgment improved A/P Patient admitted after a suicidal attempt. He reports feeling much better. He currently denies suicidal or homicidal ideation. Continue with current medication Current Medications Sig/Isiah Start time Last Medication Dose Route Stop Time Status Admin Cholecalciferol 1,000 IU DAILY 04/23 1000 AC 04/24 PO 08 Gabapentin 300 MG TID 04/23 1000 AC 04/24 PO 08 Gabapentin 200 MG Q2 HRS NEEDED PRN 04/23 0030 PO
[2017-04-24 11:55] VITALS: BP 101/51
--- NOTE | 2017-04-24 12:57 | NUR ---
PT VISIBLE IN THE [place] TODAY. HIS GOAL WAS TO MAKE PLANS FOR DISCHARGE. PT HAS BEEN IN GROUPS TODAY, AND INTERACTS WITH HIS PEERS, WELL STAFF. PT HAS BEEN COMPLIANT WITH THE RULES OF THE UNIT, AND DENIES THOUGHTS TO HURT HIMSELF WHEN ASKED.
[2017-04-24 15:44] VITALS: BP 143/63
[2017-04-24 19:57] VITALS: BP 105/58
--- NOTE | 2017-04-24 20:39 | NUR ---
PT HAS TILL APPEARED ELEVATED BUT HAS BEEN COMPLIANT AND HAS GOTTEN OUT OF LINE. HE DENIES FEELING ANYTHING BUT "A-OK"
--- NOTE | 2017-04-25 04:59 | NUR ---
SLEPT WELL OVERNIGHT WITH NO COMPLAINTS OFFERED.
[2017-04-25 07:50] VITALS: BP 106/54
[2017-04-25 12:35] VITALS: BP 129/55
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
--- NOTE | 2017-04-25 14:14 | NUR ---
out in community going to groups. mood is stable, slightly elavated. denied thoughts of self harm when asked.
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
[2017-04-25 15:57] VITALS: BP 116/72
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
--- NOTE | 2017-04-25 17:04 | SOCIAL WORKER TX PLAN PSYCH ---
Treatment Plan - Please Document: - Evidence that there is ongoing collaboration between - the patient and the interdisciplinary team, - including the patient's active participation and - responsibility for engaging in the treatment regimen, - and that the treatment plan is individualized and - relevant to the patient's conditions. - Treatment plan should reflect documentation indicating - that all active therapeutic efforts are included. Strengths/Capabilities: Desire to stop using Physical Limitations (Interventions): Pattern of relapse, multiple suicide attempts Patient Identified Trmt Goals: "I need to stop using" Discharge Plan: Patient will go to [facility] and return home. Problem/Goals #1 Problem #1: manic symptoms Goal (Short Term): patient will explore medications with the CENTRAL COMMUNICATIONS SPECIALIST to stabilize mood. Goal (Longterm): patient's speech and thoughts will be stabilized to a normal rate and volume. Interventions: patient will be offered medication management with the CENTRAL COMMUNICATIONS SPECIALIST, patient will be offered groups on symptom management, coping skills, relaxation, focus group, accupuncture, goals group. Slope Tender will assess mood and thoughts daily, assist with aftercare planning. Discuss importance of medication compliance. Modalities: group/ individual Problem/Goals #2 Problem #2: cocaine dependence/abuse Goal (Short Term): Patient will identify the risks/ benefits of using cocaine Goal (Associate Producer): patient will have a relapse prevention plan Interventions: patient will be offered groups on relapse prevention, symptom management, AA meetings. Slope Tender will discuss AA. Assist with follow up tx. Modalities: group/ individual DSM5/PS Stressors/Medical Prob Diagnosis' (DSM 5, Stressors, Medical): (F31.9) Unspecified Bipolar Disorder, current episode hypomanic (F14.10) Cocaine Use Disorder (F13.10) Sedative Hypnotic Use Disorder Financial Divorce (1 year ago) Social Isolation Anemia due to substance abuse Treatment Team - Responsibilities of members of the treatment team include: - Medication Management- MD or CENTRAL COMMUNICATIONS SPECIALIST - Medication Administration and Monitoring- Nurse - Group Therapy- Occupational Therapist - 1:1 Therapy,Disch Planning,family involvement-Slope Tender
--- NOTE | 2017-04-25 18:01 | NUR ---
PT IS CALM, COOPERATIVE WITH STAFF AND PEERS, AND COMPLIANT WITH UNIT RULES. OFTEN IN MILIE[place], INTERACTING WELL WITH OTHERS. PT CAN BE SLIGHTLY IRRITABLE AT TIMES. MOOD IS STABLE, AFFECT IS BRIGHT TO FUUL RANGE, COMMUNICATION IS ORGANIZED AND APPEARS NORMAL IN ALL RESPECTS, AND APPETITE IS NORMAL. PT DENIES SI AT THIS TIME.
[2017-04-25 19:42] VITALS: BP 113/61
--- NOTE | 2017-04-26 03:39 | NUR ---
SLEPT WELL OVERNIGHT.
[2017-04-26 07:35] VITALS: BP 121/67
--- NOTE | 2017-04-26 11:37 | CP SOUTH PROGRESS NOTE PSYCH ---
Psych (Inpt) Progress Note Progress Note Include the following elements, when applicable: Involvement in the active treatment of the patient with behavioral observations of the patient and the patient's response to the treatment. Review of the ongoing treatment process in the context of the treatment plan. Indication of how multi-disciplinary staff members are carrying out the treatment plan. Plans for future interventions and recommendations for revision of the treatment plan. Liaison with other physicians/providers. Progress Note: I discussed this patient's progress to date, current mental status, treatment process in the context of the treatment plan, and discharge planning with staff/ team in the daily morning inpatient team meeting. I also met with the patient myself in individual session. Current Medications Sig/Isiah Start time Last Medication Dose Route Stop Time Status Admin Cholecalciferol 1,000 IU DAILY 04/23 1000 AC 04/26 PO 0800 Divalproex Sodium 1,000 MG 2200 04/25 2200 AC 04/25 PO 2211 Gabapentin 300 MG TID 04/23 1000 AC 04/26 PO 0800 Gabapentin 200 MG Q2 HRS NEEDED PRN 04/23 0030 AC PO Vital Signs Date Time Temp Pulse Resp B/P B/P Pulse O2 O2 Flow FiO2 Mean Ox Delivery Rate 04/26 0735 97.0 90 121/67 04/25 1942 97.2 89 113/61 04/25 1557 86 116/72 04/25 1235 80 129/55 A: Chart, progress notes, labs, vital signs and medication list were reviewed. Vital signs within normal limits. No new lab results today. Patient signed-in voluntarily yesterday afternoon and then signed 3-day paper. Will on 04/28/17. Met with the patient individually this morning. He described his mood as "good. " Affect full-range, appropriate. Eye contact good. Speech was somewhat hyperverbal, non-pressured. Talked about his previous therapist from years ago who also was Syrian. 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 Reported sleeping well last night, approx 5-6 hours, which he described as normal. Reported having a stable appetite. Denied racing thoughts today. Rated anxiety a 4/10 (10 being the worst). Rated depression a 1/10 (10 being the worst ). Denied feeling hopeless, helpless, worthless and guilty. Denied passive and active suicidal ideation, plans and intent. Denied homicidal ideation. Denied auditory and visual hallucinations. Denied paranoid ideation. No evidence of delusional thought content. Thought process was linear, goal directed to return to work. Cognition grossly intact. Patient reported tolerating initiation of Depakote ER well and denied untoward effects. Remains agreeable to continue medication for mood stabilization. Also, patient remains in favor to f/u with [facility]. P: -continue Depakote ER 1,000mg QHS. Level scheduled on 04/28/17. -continue monitoring on unit for safety, mood and SI. -Dispo planning per primary team, likely discharge 04/28 if stable with IOP f/u due to expiration of 3-day paper.
[2017-04-26 12:18] VITALS: BP 124/66
--- NOTE | 2017-04-26 13:19 | NUR ---
PT IS COMPLIANT AND COOPERATIVE WITH UNIT RULES. PT IS ATTENDING GROUPS. PT MOOD IS STABLE WITH A BRIGHT TO FULL RANGE AFFECT. PT IS OUT IN COMMUNITY ITNERACTING WELL WITH OTHERS. PT DENIES SI THOUGHTS.
--- NOTE | 2017-04-26 13:48 | SOCIAL WORKER PROG NOTE PSYCH ---
Social Work Progress Note Progress Note Reese shared that he feels more focused today. Able to process things better. He remains somewhat hyperverbal and active, not sure how much of this is just cultural. He talked about the importance of structure and getting back into a rountine at home. We talked about insurance. He is open to trying to get insurance and told me they gave him a number on the medical floor. He tried the number, but it was the number to get [employer]. He won't be eligible for [employer], so he asked for the number to [facility]. I gave him this information. He is open to paying jung to attend [facility] for now. I told him I will be setting up his intake for . Intake is scheduled for 11:30a. I got on the phone with [facility] and explained that Reese is looking to get insurance. They shared that if he has not been dropped from an insurance in the past 60 days he would have to wait until open enrollment in September. Reese also called a friend of his who works in the insurance business. He was going to look into seeing if there was anything he could do to help him. I called the business office to try and find out what the fee would be for self pay to [facility]. I will need to hear back from them tomorrow. Reese is getting anxious to leave. Keeps advocating to leave tomorrow instead of .
[2017-04-26 15:59] VITALS: BP 97/67
--- NOTE | 2017-04-26 18:34 | NUR ---
PT IS CALM, COOPERATIVE WITH STAFF AND PEERS, AND COMPLIANT WITH UNIT RULES. OFTEN IN [place], INTERACTING WELL WITH OTHERS. CAN BE SLIGHTLY HYPERACTIVE AT TIMES. MOOD IS STABLE, AFFECT APPEARS BRIGHT TO FULL RANGE, COMMUNICATION IS ORGANIZED AND APPEARS NORMAL IN ALL RESPECTS, AND APPETITE IS NORMAL. PT DENIES SI AT THIS TIME.
[2017-04-26 20:17] VITALS: BP 124/60
[2017-04-27 07:47] VITALS: BP 100/65
--- NOTE | 2017-04-27 08:55 | CP SOUTH PROGRESS NOTE PSYCH ---
See Addendum Psych (Inpt) Progress Note Progress Note Include the following elements, when applicable: Involvement in the active treatment of the patient with behavioral observations of the patient and the patient's response to the treatment. Review of the ongoing treatment process in the context of the treatment plan. Indication of how multi-disciplinary staff members are carrying out the treatment plan. Plans for future interventions and recommendations for revision of the treatment plan. Liaison with other physicians/providers. Progress Note: Pt with schizoaffective disorder with continued thought disturbance, following rapid switch from depressed state. Making slow progress after prolonged hospitalization while awaiting placement. Continues to require inpatient hospitalization for stabilization and safety. Current Medications Sig/Isiah Start time Last Medication Dose Route Stop Time Status Admin Cholecalciferol 1,000 IU DAILY 04/23 1000 AC 04/27 PO 0803 Divalproex Sodium 1,000 MG 2200 04/25 2200 AC 04/26 PO 2221 Gabapentin 300 MG TID 04/23 1000 AC 04/27 PO 0803 Gabapentin 200 MG Q2 HRS NEEDED PRN 04/23 0030 AC PO Vital Signs Date Time Temp Pulse Resp B/P B/P Pulse O2 O2 Flow FiO2 Mean Ox Delivery Rate 04/27 0747 97.3 78 100/65 04/26 2017 98.0 82 124/60 04/26 1559 86 97/67 04/26 1218 77 124/66 A: Chart, progress notes, labs, vital signs and medication list were reviewed. Vital signs within normal limits. No new lab results today. Met with patient together this morning with Mayra Neal LCSW. He described his mood as "very good." Mood appeared more stable than in prior encounters. No evidence of jordi/hypomania. Affect full-range, appropriate, non-labile. Reported feeling more focused. Denied further racing thoughts. Stated he is sleeping and eating well. Stated his energy level is "good."Remains agreeable to IOP tx post-discharge. He was eager to resume work. He showed improved insight and judgement into his substance abuse and the impact it had on his health and finances. He shared that following discharge he would like to resume going to the gym and look into having a good friend of his help him manage his finances. He denied feeling hopeless, helpless, worthless or guilty. Denied active and passive suicidal ideation, plans and intent. Denied homicidal ideation, auditory and visual hallucinations. Thought process linear, goal directed. Cognition grossly intact. He reported tolerating medications well and denied untoward effects. Remains agreeable to continue taking medications. P: -cont. monitoring on unit for safety, mood and SI. -cont. current meds. VPA level scheduled tomorrow morning. -discharge tomorrow with f/u at [facility] for intake.
--- NOTE | 2017-04-27 08:58 | NUR ---
PT IS TENTATIVELY SCHEDULED FOR [place] [facility] [place] HE REPORTS AND DEMONSTRATES IMPROVEMENT IN HIS MOOD AND ABILITY TO FUNCTION. HE DENIES ANY THOUGHTS OF SUICIDE OR SELF HARM AT THIS TIME. HE VERBALIZES A GOOD UNDERSTANDING OF HIS MED REGIME AND IT IS RECOMMENDED PT FOLLOW UP WITH [facility]. PT IS GIVEN EDUCATION R/T MANAGING HIS MOOD DISORDER AND ON PREVENTING SUICIDE
--- NOTE | 2017-04-27 11:42 | NUR ---
PT IS OUT IN THE COMMUNITY ITNERACTING WELL WITH STAFF AND PEERS. PT IS COMPLIANT AND COOPERATIVE WITH UNIT RULES. PT IS ATTENDING GROUPS. PT MOOD IS STABLE WITH A BRIGHT TO FULL RANGE AFFECT. PT DENIES SI THOUGHTS.
[2017-04-27 12:21] VITALS: BP 112/65
[2017-04-27 15:53] VITALS: BP 109/67
--- NOTE | 2017-04-27 16:24 | SOCIAL WORKER PROG NOTE PSYCH ---
Social Work Progress Note Progress Note Talked to Alison in the business office. She informed me that it would cost 67.00 dollars per session at [facility]. This is the uninsured rate. Oksana Lee APRN and I met with Reese together today. I explained that he will not discharge today and we will discharge him tomorrow with a plan to go to [facility] intake at 11:30a. He reports having a good night. Eating good. States his appetite has improved tremendously. Talked about AA involvement. Wanting to excercise and the importance of managing his money more wisely. He is hoping a friend of his will help him with his finances. He feels he needs that level of support right now. He is hoping to save alot of money in the next several months to make up for the losses he has had due to his addiction. We talked about whether or not he could afford his medication at discharge. He said it wasn't a problem. We looked up the cost of the Depakote and what it would be for about 2 weeks worth. Looks like it will be around 56.00. He said that was fine. I also informed him about the cost of the IOP. He understands why we are holding him until tomorrow and respects our decision. He has appreciated the help he has received.
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
[2017-04-27 19:48] VITALS: BP 126/61
--- NOTE | 2017-04-28 07:27 | NUR ---
PT SLEPT. PT IN GOOD CONTROL. PT WILL DC TODAY. DEPAKOTE LEVEL DONE.
[2017-04-28 07:38] VITALS: BP 129/81
--- NOTE | 2017-04-28 07:42 | CP SOUTH PROGRESS NOTE PSYCH ---
Psych (Inpt) Progress Note Progress Note Include the following elements, when applicable: Involvement in the active treatment of the patient with behavioral observations of the patient and the patient's response to the treatment. Review of the ongoing treatment process in the context of the treatment plan. Indication of how multi-disciplinary staff members are carrying out the treatment plan. Plans for future interventions and recommendations for revision of the treatment plan. Liaison with other physicians/providers. Progress Note: I discussed this patient's progress to date, current mental status, treatment process in the context of the treatment plan, and discharge planning with staff/ team in the daily morning inpatient team meeting. I also met with the patient myself in individual session. Current Medications Sig/Isiah Start time Last Medication Dose Route Stop Time Status Admin Cholecalciferol 1,000 IU DAILY 04/23 1000 AC 04/27 PO 0803 Divalproex Sodium 1,000 MG 2200 04/25 2200 AC 04/27 PO 2146 Gabapentin 300 MG TID 04/23 1000 AC 04/27 PO 2146 Gabapentin 200 MG Q2 HRS NEEDED PRN 04/23 0030 AC PO Nicotine 2 MG Q2 HRS NEEDED PRN 04/28 0745 AC PO Vital Signs Date Time Temp Pulse Resp B/P B/P Pulse O2 O2 Flow FiO2 Mean Ox Delivery Rate 04/28 0738 96.0 78 129/81 04/27 1948 97.2 82 126/61 04/27 1553 75 109/67 04/27 1221 73 112/65 Laboratory Tests 04/28 0619 Toxicology Valproic Acid (50 - 120 ug/mL) 27.2 L A: Chart, progress notes, labs, vital signs and medication list were reviewed. Vital signs within normal limits. VPA subtherapeutic, 27.2ug/mL. Met with patient this morning on the date of discharge. He presented alert, oriented x 3. Speech accented, normal in rate, tone and volume. Affect full- range, bright, appropriate, non-labile. Described his mood as "good." Eye contact appropriate. Reported sleep is "good" and appetite is "big." He offered no complaints. Rated anxiety a 2/10 (10 being the worst). Rated depression a 0/ 10 (10 being the worst). Denied feeling hopeless, helpless, worthless and guilty. Denied racing thoughts. Denied urges/cravings to use substances. Stated he is motivated to resume NA meetings and obtain a sponsor. [facility]. Looking forward to [facility] program, returning to work and starting to exercise. Denied active and passive suicidal ideation, plans, intent. He stated and believed he will not harm himself or others. Gave protective factors of "my kids," "my business." Denied homicidal ideation. Denied auditory and visual hallucinations. There was no evidence of manic or psychotic symptoms. Thought process linear, goal directed. Reported having positive response to Depakote ER, stated it has improved his focus and concentration. He reported tolerating medications well, denied untoward medication effects. P: -Discharge today to home and self-care. -F/u at [facility] for intake today at 11:30AM. -Patient strongly advised to attend daily NA meetings and obtain a sponsor for support in sobriety. -Patient educated on smoking cessation program, provided with programming date. Offered nicotine gum post-discharge. -Increase Depakote ER 1,000mg QPM to 1,250mg QPM for mood stabilization. Lab slip given to patient for VPA level. Informed to complete lab work in 4 days. -In the event of an emergency, call [phone] to nearest emergency department. Patient verbalized understanding of instructions. -Discharge prescriptions e-prescribed to [facility] in [place], [place] (Stefany Le), per patient request.
[2017-04-28] MEDS ORDERED: DEPAKOTE ER500 M1 PO ×2 (07:51→09:32)
[2017-04-28] MEDS ORDERED: GABAPENTIN300 M2 PO (07:51)
[2017-04-28] MEDS ORDERED: NICORELIEF2 MG PO (07:51)
--- NOTE | 2017-04-28 08:08 | DISCHARGE SUMMARY REPORT-PSYCH ---
Visit Information Visit Dates/Diagnosis' Admission Date: 04/22/17 Discharge Date: 04/28/17 Reason for Admission: Patient was admitted to [facility] on a PEC from [facility] medical floor s/p overdose on Xanax (approx 40 pills per his report) in a suicide attempt d/t psychosocial stressors, ie. 1 year anniversary of his divorce, financial stress related to spending $200K over past year on crack/cocaine and chronic relapse. Psy Discharge Primary Diag: Bipolar disorder, MRE mixed Psy Discharge Secondary Diag: R/O PTSD; Cocaine use disorder, severe; Vitamin D deficiency. Hospital Course Significant Lab Findings: Lab 25-OH Vitamin D Total 15.1 ng/ml L 04/19/17 1255 Absolute Monocytes 0.9 /CUMM H 04/22/17 0605 Eosinophils % 14.5 % H 04/22/17 0605 Hct 41.6 % L 04/22/17 0605 Hgb 13.6 G/DL L 04/22/17 0605 MCH 31.7 PG H 04/22/17 0605 MCV 97.4 FL H 04/22/17 0605 Monocytes % 9.8 % H 04/22/17 0605 PUBS MCHC 32.6 G/DL L 04/22/17 0605 RBC 4.27 /CUMM L 04/22/17 0605 HIV 1&2 Ab Western Blot NONREACTIVE 04/19/17 1802 Hep B Core IgM Ab Conf NONREACTIVE 04/19/17 1802 Hep Bs Antigen NONREACTIVE 04/19/17 1802 Hepatitis A IgM Ab NONREACTIVE 04/19/17 1802 Hepatitis C Antibody NONREACTIVE 04/19/17 1802 U Benzodiazepines Scrn > 800 NG/ML H 04/19/17 1255 Urine Cocaine Screen > 1000 NG/ML H 04/19/17 1255 Valproic Acid 27.2 ug/mL L 04/28/17 0619 04/20/17 EKG: Sinus rhythm with a rate of 97. MT: 164. QRSD: 90. QT: 336. QTc: 427. P: 51. QRS: 89. T: 17. Normal EKG confirmed by wash operator Dr. Sarath Tafoya. Course Complications: None. Consultations: The patient was seen for admission history and physical by hardware trainer Dr. Omayra Toney. Please see his note for additional information. Allergies: Coded Allergies: No Known Allergies (04/25/17) Hospital Course/TX Response: The patient was monitored on the unit for safety, mood and suicidal ideation. He participated in multimodal treatments on the unit. He was started on Gabapentin 300mg TID for anxiety. He was additionally started on Depakote ER 1,000mg QHS for mood stabilization. Trough VPA level was subtherapeutic, 27.2ug/mL on . Depakote ER was increased from 1,000mg QHS to 1,250mg QHS on the date of discharge. Patient reported tolerating all medications well and denied untoward effects. During the hospital course, the patient's mood and affect improved. He consistently denied suicidal ideation, homicidal ideation and symptoms of psychosis. He did not allow any friends or family to be involved in his inpatient level of care. He was in favor of discharge plan to follow up with [facility] for continued medication management and psychiatric treatment. On the date of discharge, 04/28/17, the patient presented alert, oriented x 3. Speech accented, normal in rate, tone and volume. Affect full-range, bright, appropriate, non-labile. Described his mood as "good." Eye contact appropriate. Reported sleep is "good" and appetite is "big." He offered no complaints. Rated anxiety a 2/10 (10 being the worst). Rated depression a 0/10 (10 being the worst ). Denied feeling hopeless, helpless, worthless and guilty. Denied racing thoughts. Denied urges/cravings to use substances. Stated he is motivated to resume NA meetings and obtain a sponsor. [facility]. Looking forward to IOP program, returning to work and starting to exercise. Denied active and passive suicidal ideation, plans, intent. He stated and believed he will not harm himself or others. Gave protective factors of "my kids" and "my business." Denied homicidal ideation. Denied auditory and visual hallucinations. There was no evidence of manic or psychotic symptoms. Thought process linear, goal directed. Reported having positive response to Depakote ER, stated it has improved his focus and concentration. He reported tolerating medications well, denied untoward medication effects. Discharge HBIPS - Tobacco Use Treatment Offered Post DC Medications Offered: Script Given-See Med List Post DC Tobacco Treatment Plan: Refused Tobacco Tx Pgm - EtOH/Drug Use D/O Treatment Offered Post DC Medications Offered: Med Not Indicated for D/O Post DC EtOH/SubAbuse TX Plan: [facility] SubAbuse/Dual IOP Program Appt Date: 04/28/17 Program Appt Time: 1130 Metabolic Screening - Screen if on a Neuroleptic Medication - Metabolic screening should include: - Blood Pressure, BMI, Glucose or Hgb A1c, & a - Lipid profile from within the past 365 days. Metabolic Screening ([X]) Not Applicable, patient not on a neuroleptic. OR () Patient on a neuroleptic(s) . Enter below results for Glucose or Hemoglobin A1C, and lipid panel if obtained during the last 365 days. BMI: 24.000 Blood Pressure: 129/81 Laboratory Results (If applicable): n/a Discharge Instructions General Discharge Information Discharge Medications: Discharge Medications- (Dose, route, freq, indication): START taking these NEW Home Medications: Nicotine Dose: ORAL, EVERY 2 HOURS Qty: 30 Sent to (Nicorelief) 2 MG 2 Milligram NEEDED as needed for Refills: 0 Pharm 1 GUM nicotine craving Take 1 piece (2mg) po Q2 hours as needed for nicotine craving. Gabapentin Dose: ORAL, THREE TIMES DAILY Qty: 42 Sent to (Gabapentin) 300 MG 300 Milligram for anxiety/discomfort Refills: 0 Pharm 1 CAPSULE Take 1 cap (300mg) po TID. Divalproex Sodium Dose: ORAL, Every night for Qty: 28 Sent to (Depakote ER) 500 MG 2 Tablet mood stabilization Refills: 0 Pharm 1 TAB.ER.24H Take 2 tabs (1,000mg) + 1 tab 250mg po QPM for a total of 1,250mg. Divalproex Sodium Dose: ORAL, Every night for Qty: 14 Sent to (Depakote ER) 250 MG 1 Tablet mood stabilization Refills: 0 Pharm 1 TAB.ER.24H Take 1 tab po QPM. CONTINUE taking these Home Medications: Cholecalciferol (Vitamin Dose: ORAL, DAILY for D3) (Vitamin D) 1,000 1 Tablet Suppplement UNIT TABLET 1: Done. [id number], [address], [place] [id number] [facility] Preferred Pharmacy Done. [id number] [address] [place], [place] [id number] Multiple Neuroleptics: ([X]) Not Applicable OR Document below three failed attempts at monotherapy, or a plan to taper to monotherapy, or augmentation of Clozapine. () Patient's Diet: Regular. Patient's Activity: No restrictions. DC Disposition: Patient to return to home and self-care. Recommendations: Patient was advised to please take his medications as prescribed. Lab slip for Depakote level was provided; he was instructed to complete lab draw on the morning 05/01/17. He was advised to attend scheduled referral at [facility]. He was advised to abstain from all substances; to attend weekly NA meetings and to obtain a sponsor for support in sobriety. He was advised that in the event of an emergency to call 911/go to nearest emergency department. Patient verbalized understanding of all instructions. Referred To: Post Discharge Referrals INTENSIVE OUTPT PSYCHIATRY Service Date: 04/28/17 [address] [id number] Notes: [facility] Intensive Outpatient Program Intake 04/28/17 11:30am [address] [phone] Copies To: [facility]
[2017-04-28] MEDS ORDERED: DEPAKOTE ER250 M1 PO (09:32)
--- NOTE | 2017-04-28 11:30 | NUR ---
PT DISCHARGING TODAY AND HAS + UNDERSTANDING OF MEDICATION REGIMENT AND MOTIVATION FOR FOLLOW-UP DISCHARGE PLAN. MOOD IS STABLE WITH FULL RANGE AFFECT, TEAM DETERMINED SAFE FOR DISCHARGE AND IS FUTURE MOTIVATED/ORIENTED. INFORMATION PACKETS RE: SUSBSTANCE ABUSE, SI AND DEPRESSION GIVEN AND PT RESOURCE GUIDE AND W-10 REVIEWED WITH PT WELL AND VERBALIZED UNDERSTANDING, DENIES THOUGHTS OF SELF HARM AND HAS AN 11:30 IOP APPT TODAY WELL. PT IS APPROPRIATE WITH PEERS AND STAFF, SOCIAL AND PRESENT WITH WITHIN THE [facility] AND ACTIVE/ENGAGED IN TREATMENT WHILE ON CPS.
== END 2017-04-28 11:47 | DRG 881 ==
LOC: CP SOUTH 13:08
PROVIDERS: ADMIT Psychiatry & Neurology Psychiatry
DX: F32.9 Major depressive disorder, single episode, unspecified (principal)
CPT/HCPCS: 36415

== ENCOUNTER 2018-01-11 22:29 | Inpatient (IN) | payer OTHER ==
[~2018-01-11] VITALS: Ht 172.7 cm; Wt 76.4 kg
[~2018-01-11 22:29] MED LIST changes: +DEPAKOTE ER250 M1 PO; +DEPAKOTE ER500 M1 PO; +GABAPENTIN300 M2 PO; +NICORELIEF2 MG PO
--- NOTE | 2018-01-11 23:15 | ED PSYCHIATRIC COMPLAINT ---
See Addendum History of Present Illness General Chief Complaint: Psychiatric Related Complaint Stated Complaint: +SI PER PT Source: patient, old records Exam Limitations: no limitations Vital Signs & Intake/Output Vital Signs & Intake/Output Vital Signs Date Time Temp Pulse Resp B/P B/P Pulse O2 O2 Flow FiO2 Mean Ox Delivery Rate 01/14 1920 96.6 75 124/55 03/ 1604 98.9 77 20 118/67 98 Room Air 03/ 1350 97.8 74 18 125/64 98 Room Air 01/13 1110 97.1 88 18 114/69 99 Room Air 03/ 0825 97.0 80 18 116/58 98 Room Air / 0652 77.0 18 145/76 98 Room Air 03/ 0440 96.2 64 18 114/64 98 Room Air / 0223 96.8 66 18 117/67 98 Room Air / 0011 98.1 86 18 114/74 97 Room Air 01/12 2207 98.4 88 18 119/64 97 Room Air 01/12 2016 98.3 78 20 122/66 99 Room Air ED Intake and Output 01/13 0000 01/12 1200 Intake Total Output Total Balance Patient 170 lb Weight Allergies Coded Allergies: No Known Allergies (04/25/17) Reconcile Medications No Known Home Medications Triage Note: PT TO TRIAGE WITH +SI THOUGHTS TO CUT HIMSELF WITH A RAZOR. PT STATES HE HAS BEEN BATTLING DEPRESSION FOR A FEW YEARS AND TURNS TO DRUGS AND THEN HAS +SI THOUGHTS. DENIES ANY SI ATTEMPTS IN THE PAST. DENIES HI. PT ADMITS TO ETOH AND COCAINE USE. DENIES ANY W/D SEIZURES. CALM AND COOPERATIVE IN TRIAGE. SECURITY CALLED FOR WANDING. Triage Nurses Notes Reviewed? yes Onset: Last week Duration: week(s):, constant, continues in ED, getting worse Timing: recent history Severity: severe Associated Symptoms: impaired concentration, insomnia, suicidal ideation HPI: 2 weeks prior to admission patient reports alcohol and crack cocaine abuse with increasing depression and thoughts of suicide by cutting his wrists or hanging himself with his belt. He denies fever chills nausea vomiting diarrhea abdominal pain chest pain shortness breath headache dysuria rash bleeding homicidal ideation hallucination. Reports not being compliant with his psychiatric medications. (Bebo RODRIGUEZ,Clem) Past History Travel History Traveled to [place] past 21 day No Medical History Any Pertinent Medical History? 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 No (Clem Lagunas MD) Review of Systems Review of Systems Constitutional: Reports: no symptoms. EENTM: Reports: no symptoms. Respiratory: Reports: no symptoms. Cardiovascular: Reports: no symptoms. GI: Reports: no symptoms. Genitourinary: Reports: no symptoms. Musculoskeletal: Reports: no symptoms. Skin: Reports: no symptoms. Neurological/Psychological: Reports: see HPI, anxiety, depressed. Hematologic/Endocrine: Reports: no symptoms. Immunologic/Allergic: Reports: no symptoms. All Other Systems: Reviewed and Negative (Clem Lagunas MD) Physical Exam Physical Exam General Appearance: well developed/nourished, alert, awake, anxious, moderate distress Head: atraumatic Eyes: Bilateral: PERRL, EOMI. Ears, Nose, Throat: normal pharynx, normal ENT inspection, hearing grossly normal Neck: normal inspection, supple Respiratory: normal breath sounds Cardiovascular: regular rate/rhythm Gastrointestinal: soft, non-tender Extremities: normal range of motion Neurological/Psychiatric: no motor/sensory deficits, awake, agitated, alert, anxious, paper finisher II-XII nml as tested, oriented x 3 Appearance/Memory/Insight: disheveled, impaired insight Behavoir/Eye Contact/Speech: cooperative, normal speech Thoughts/Hallucinations: no apparent hallucination Skin: intact, normal color, warm/dry SAD PERSONS SAD PERSONS Response Value Male Sex? yes 1 Depression/Hopelessness? yes 2 Previous Attempts/Psych Care yes 1 Excessive Ethanol/Drug Use? yes 1 Rational Thinking Loss? yes 2 Single//? yes 1 Social Support? has no support 1 Stated Future Intent? yes 2 Total 11 SAD PERSONS Done? yes (Clem Lagunas MD) Progress Differential Diagnosis: drug intoxication, drug overdose, drug withdrawal, electrolyte abnormality, hypoglycemia Plan of Care: Orders Procedure Date/time Status Vital Signs 01/13 1910 Active Inpt Psych Teach/Educate 01/13 1910 Active Nutritional Intake, Monitor 01/13 1910 Active Inpt Psych Auricular Acupunctu 01/13 1910 Active Continuous Observation Monitor 01/13 0700 Complete Continuous Observation Monitor 01/13 0300 Complete Continuous Observation Monitor 01/12 2300 Complete Continuous Observation Monitor 01/12 190 Complete Current Medications Sig/Isiah Start time Last Medication Dose Stop Time Status Admin Trazodone HCl 50 MG AT BEDTIME 01/12 2200 AC 01/12 (Desyrel) 222 Hand-Off Endorsed To: Timothy Smith MD Endorsed Time: 07 Pending: consult (crisis), labs (drug screen) (Clem Lagunas MD) Comments: 01/12/2018 8:48:05 PM patient signed out to me by Dr. Lagunas at shift roving changer. They should has had an uneventful emergency department stay during the day shift and has been signed out to Dr. Lagunas at shift roving changer. (Timothy Smith MD) Departure Departure Disposition: STILL A PATIENT Condition: Stable Clinical Impression Primary Impression: Depression with suicidal ideation Referrals: Leobardo Campo MD (PCP/Family) Departure Forms: Customer Survey General Discharge Information Prescriptions: Current Visit Scripts No Known Home Medications (Clem Lagunas MD) Psych Admission Note Psychiatric Admission: I have seen and evaluated INDIGO SELLERS. I have also reviewed all the pertinent lab results and diagnostic results. INDIGO SELLERS will be admitted to our inpatient Psychiatric unit for treatment and care. (Sharmaine RODRIGUEZ,Tejinder Whipple) ED Attending Observation Initial Observation Note: I have seen and personally examined INDIGO SELLERS on 01/11/18 at 2350. I agree with the current emergency department documentation. The disposition (admission or discharge) is uncertain at this time, he needs a period of observation for the following reason(s): depression with suicidal ideation awaiting psychiatric evaluation The ED Nurse caring for this patient has been personally informed as to what the patient is being observed for. (Clem Lagunas MD) Current Visit Scripts No Known Home Medications (Clem Lagunas MD) ED Attending Observation Initial Observation Note: I have seen and personally examined INDIGO SELLERS on 01/11/18 at 2350. I agree with the current emergency department documentation. The disposition (admission or discharge) is uncertain at this time, he needs a period of observation for the following reason(s): depression with suicidal ideation awaiting psychiatric evaluation The ED Nurse caring for this patient has been personally informed as to what the patient is being observed for. (Bebo RODRIGUEZ,Clem)
[2018-01-11 23:56] LABS: ABSOLUTE BASOPHIL COUNT 0.1 /CUMM (0.0-0.2); ABSOLUTE EOSINOPHIL COUNT 0.4 /CUMM (0.0-0.7); ABSOLUTE GRANULOCYTE CT 8.4 /CUMM (1.4-6.5); ABSOLUTE LYMPH COUNT 2.5 /CUMM (1.2-3.4); ABSOLUTE MONOCYTE COUNT 0.9 /CUMM (0.10-0.60); BASOPHIL % 0.6 % (0.0-2.0); GRANULOCYTE % 68.9 % (42.2-75.2); HEMATOCRIT 42.5 % (42-52); MEAN CORPUSCULAR HGB 32.4 PG (27.0-31.0); MEAN CORPUSCULAR HGB CONC 33.5 G/DL (33.0-37.0); MEAN CORPUSCULAR VOLUME 96.7 FL (80.0-94.0); MEAN PLATELET VOLUME 8.4 FL (7.4-10.4); PLATELET COUNT 241 /CUMM (130-400); RBC DISTRIBUTION WIDTH 13.1 % (11.5-14.5); RED BLOOD CELL CT 4.39 /CUMM (4.70-6.10); WHITE BLOOD CELL COUNT 12.1 /CUMM (4.8-10.8)
--- NOTE | 2018-01-12 17:47 | ED PSYCH CRISIS CONSULTATION ---
See Addendum Crisis Consult Basic Assessment Date of Consult: 01/12/18 Responsible Person/Accompanied By: Self Insurance Authorization: Insurance #1: Insurance name: CLOTH LAYER-DARIANA Phone number: Policy number: Group number: Authorization number: ED Provider: Patient's ED Provider: Clem Lagunas MD Primary Care Physician: Patient's PCP: Leobardo Campo MD PCP's Current Psychiatrist: None Chief Complaint: Psychiatric Related Complaint Patient's Quote: "I had three suicide attempts this year and I want to do it again." Present Illness: Pt. was a 43 year old male, per records originally from [facility], for 1.5 years from his who was also [place]. Reports indicated that he spent $200K on Cocaine last year. He reported that he is depressed and has been depressed over the last year because he was from his , he lost 2 houses and he uses cocaine to cope. He stated he has attempted suicide 3 times in the last year. One time he reported he took "48 Xanax pills", after which he was hospitalized psychiatrically at [place] in April 2017. He reported he took medication for a week and "it worked" but then he stopped and has not had treatment since then. The other two times he attempted suicide he reported he attempted to overdose on heroin, route insufflation, not injected. He denied any collateral that we could talk to stating "I have no one". He reported he has two children with his ex-, who he attempted to have contact with a few months ago. He continued to repeat "if I could get things right, I would talk to them, I would do better". 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 He reported he has legal involvement, the [employer] website shows a sealed record but he reported that he was arrested for driving under the influence and risk of injury. He stated he is required to attend an IOP at [facility] by the court and complete this by 02/22/18. He has not attended yet. Mr. Metcalf came into the hospital after using cocaine and drinking and reporting SI for several days with a plan to overdose. He reported he feels very depressed. Later on in the interview, when this functional tester typewriters checked facts with him he stated he felt ok to go but would not mind staying tonight because his roommate "just got paid" and would be using drugs all night in the apartment. The pt. also expressed a desire to call 211 to see where a halfway bed might be available. He was waiting on hold with 211 at the time of the writing of this report with the preference that he stay overnight here in the ED. Patient's Address: [address] [place] [address] Other Phone Number: Who Do You Live With? Other (see notes) (roommate) Family/Informants Interviewed: Pt. declined to provide collateral contact. Allergies - Coded Allergies: No Known Allergies (04/25/17) Current Medications - No Known Home Medications Laboratory Results: Laboratory Tests 01/12/18 0940: Urine Opiates Screen < 100, Methadone Screen < 40, Barbiturate Screen < 60, Ur Phencyclidine Scrn < 6.00, Amphetamines Screen < 100, U Benzodiazepines Scrn < 85, Urine Cocaine Screen > 1000.0 H, Urine Cannabis Screen < 5.00 01/11/18 2348: Anion Gap 16, Estimated GFR > 60, BUN/Creatinine Ratio 15.6, Glucose 119 H, Calcium 9.8, Total Bilirubin 0.7, AST 23, ALT 17 L, Alkaline Phosphatase 68, Total Protein 7.3, Albumin 4.6, Globulin 2.7, Albumin/Globulin Ratio 1.7, CBC w Diff NO MAN DIFF REQ, RBC 4.39 L, MCV 96.7 H, MCH 32.4 H, MCHC 33.5, RDW 13.1 , MPV 8.4, Gran % 68.9, Lymphocytes % 20.4 L, Monocytes % 7.1, Eosinophils % 3.0, Basophils % 0.6, Absolute Granulocytes 8.4 H, Absolute Lymphocytes 2.5, Absolute Monocytes 0.9 H, Absolute Eosinophils 0.4, Absolute Basophils 0.1, Serum Alcohol 46.0 01/11/18 2305: Methadone Screen Cancelled, Barbiturate Screen Cancelled, Ur Phencyclidine Scrn Cancelled, Amphetamines Screen Cancelled, U Benzodiazepines Scrn Cancelled, Urine Cocaine Screen Cancelled, Urine Cannabis Screen Cancelled Past History Past Medical History Neurological: NONE EENT: NONE Cardiovascular: NONE Respiratory: NONE Gastrointestinal: NONE Hepatic: NONE Renal: NONE Musculoskeletal: NONE Psychiatric: bipolar disease, depression Endocrine: NONE Blood Disorders: NONE Cancer(s): NONE 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 Does not follow through with OP treatment. 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 but needs to per court) Dates of Treatment has not attended Current Mental Status Mental Status Orientation: Person, Place, Situation Affect: Depressed, Hopeless Speech: WNL Neuro-vegetative: WNL Appearance Appearance- Dress/Hygiene: somewhat well groomed and well spoken with good eye contact in hospital scrubs Behaviors Thought Process: WNL Thought Content: WNL Memory: WNL Insight: Poor SI/HI Risk Assessment Past Suicidal Ideation/Attempts Yes Current Suicidal Ideation/Att Yes Past Homicidal Ideation/Att: No Current Homicidal Ideation/Attempts No Degree of Intent: Plan, States Intent, Thoughts/No Intent Danger To: Self Gravely Disabled: Lack of Insight, Poor Impulse Control, Poor Judgment Risk Factors: access to lethal means, high anxiety/distress, history of suicide atmpts, SA/MH hospitalized, substance abuse, isolate/no social support, poor impulse control, lack of outcome concern, male Lethality Ratin PTSD Checklist PTSD Score: PTSD Score: Response Value Disturbing memories,thoughts,images of stressful experience? Moderately 3 Disturbing dreams of stressful experience from past? Not at all 1 Suddenly acting/feeling as if reliving stressful experience? Not at all 1 Unpleasant feeling when reminded of stressful experience? Quite a bit 4 Physical reactions when reminded of stressful experience? Quite a bit 4 Avoid thinking/talking of stressful exp. to avoid reactions? A little bit 2 Avoid activities/situations that remind of stressful exp.? A little bit 2 Trouble remembering important parts of stressful experience? A little bit 2 Loss of interest in things that you used to enjoy? Extremely 5 Feeling distant or cut off from other people? Extremely 5 Feeling emotionally numb/unable to love those close to you? Extremely 5 Feeling as if your future will somehow be cut short? Extremely 5 Trouble falling or staying asleep? A little bit 2 Feeling irritable or having angry outbursts? Extremely 5 Having difficulty concentrating? Moderately 3 Being super alert or watchful on guard? A little bit 2 Feeling jumpy or easily startled? Not at all 1 Total 52 ED Management Sitter: Yes Restraints: No DSM5/PS Stressors/Medical Prob Diagnosis' (DSM 5, Stressors, Medical): F33.2 Major Depressive Disorder Severe without psychotic features. Current GAF: 25 Departure Disposition Psych Medical Clearance Date: 01/12/18 Medically Cleared at: 1645 Time Started: 1645 Time Ended: 1705 Psychiatrist Consulted: Ching Best MD Date Disposition Established: 01/12/18 Time Disposition Established: 190 Plan for Disposition - Modality: Hold for Re-eval in AM Facility: Additional Instructions: Pt. is expressing suicidal ideation yet asking for a halfway bed. Crisis will hold him over to re-evaluate for suicidality in the morning Referrals Leobardo Campo MD (PCP/Family)
--- NOTE | 2018-01-13 16:51 | IP CRISIS DIAG ASSESS PSYCH ---
Diagnostic Assessment Basic Assessment Insurance Authorization: Insurance #1: Temporary ID obtained through [facility]; [id number] Insurance name: ASSISTANT TEACHER-DARIANA Phone number: Policy number: Group number: Authorization number: Member~Name Member~ID Member~ Subscriber~Name Subscriber~ID ANDREW [id number] 1975 [employer]LL[employer]~ [id number] ~ Pended~Authorization~# Client Authorization # Type of Request ~ [id number] INITIAL ~ ~ Date of Admission/ Start of Services Requested From Submission Date ~ 01/13/2018 01/13/2018 01/13/2018 ~ ~ Level of Service Type of Service Level of Care Type of Care INPATIENT/[facility] INPATIENT [facility]PATIENT [facility] - INPATIENT HOSPITAL Primary Care Physician: Patient's PCP: Leobardo Campo MD PCP's Patient's Quote: "I had three suicide attempts this year and I want to do it again." Present Illness: Pt. was a 43 year old male, per records originally from [place], for 1.5 years from his who was also [place]. Reports indicated that he spent $200K on Cocaine last year. He reported that he is depressed and has been depressed over the last year because he was from his , he lost 2 houses and he uses cocaine to cope. He stated he has attempted suicide 3 times in the last year. One time he reported he took "48 Xanax pills", after which he was hospitalized psychiatrically at [place] in April 2017. He reported he took medication for a week and "it worked" but then he stopped and has not had treatment since then. The other two times he attempted suicide he reported he attempted to overdose on heroin, route insufflation, not injected. He denied any collateral that we could talk to stating "I have no one". He reported he has two children with his ex-, who he attempted to have contact with a few months ago. He continued to repeat "if I could get things right, I would talk to them, I would do better". 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 He reported he has legal involvement, the [employer] website shows a sealed record but he reported that he was arrested for driving under the influence and risk of injury. He stated he is required to attend an IOP at [facility] by the court and complete this by 02/22/18. He has not attended yet. Mr. Metcalf came into the hospital after using cocaine and drinking and reporting SI for several days with a plan to overdose. He reported he feels very depressed. Later on in the interview, when this script writer checked facts with him he stated he felt ok to go but would not mind staying tonight because his roommate "just got paid" and would be using drugs all night in the apartment. The pt. also expressed a desire to call 211 to see where a usp bed might be available. He was waiting on hold with 211 at the time of the writing of this report with the preference that he stay overnight here in the ED. Patient's Address: [address] [place] [address] Other Phone Number: Who Do You Live With? Other (see notes) (roommate) Feel Safe Where You Live? Yes Feel Safe in Your Relationship Yes Marital Status: Do You Have Children? Yes Ages? 8, 12 , live with mother Primary Language? Angolan Language(s) Spoken At Home: Arabic, Angolan Family/Informants Interviewed: Pt. declined to provide collateral contact. Allergies - Coded Allergies: No Known Allergies (04/25/17) Current Medications - No Known Home Medications Consequences of Psych Med Use: Pt reports positive response but stopped taking his medication. Toxicology Screen Completed? Yes Results: positive (Cocaine) Symptoms of Use: Pt reports he uses cocaine to cope with stress. Past History Past Medical History Medical History: None/Denies Past Surgical History Surgical History none Abuse/Trauma History Trauma History/Current Trauma: Denies Legal History Current Legal Status: court ordered treatment Have you ever been arrested? Yes Pending Court Dates: 02/22/18 Psychosocial History Strengths/Capabilities: Desire to stop using, pt states he wants treatment. Physical Limitations (Interventions): Pattern of relapse, multiple suicide attempts Psychiatric Treatment History Psych Treatment Psychiatric Treatment Yes Inpatient Treatment Yes Outpatient Treatment No Location of Treatment [facility]. Does not follow through with OP treatment. Reason for Treatment is stabilized in hospital and is discharged and decompsates and becomes depressed and uses drugs Dates of Treatment April 2017 Diagnosis by History: F33.2 Major Depressive Disorder Severe Risk Factors: access to lethal means, high anxiety/distress, history of suicide atmpts, SA/MH hospitalized, substance abuse, isolate/no social support, poor impulse control, lack of outcome concern, male Substance Use/Abuse History Drug Use/Abuse minimum 12mo Hx Substances Used/Abused Yes Substance Used/Abused Cocaine First Use unknown Last Used yesterday How much used/taken unknown How often a few times a month For how long over the last 1-2 years Route of use insufflation Substance Abuse Treatment Substance Abuse Treatment Past Substance Abuse [place] No Inpatient Treatment No Outpatient Treatment No 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 (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 attended IOP but needs to per court) Dates of Treatment has not attended Education History Highest Level of Education: some college, 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 Preferred Learning Style: visual, auditory Current Mental Status Mental Status Orientation: Person, Place, Situation Affect: Depressed, Hopeless Speech: WNL Neuro-vegetative: WNL Appearance Appearance- Dress/Hygiene: somewhat well groomed and well spoken with good eye contact in hospital scrubs Behaviors Thought Process: WNL Thought Content: WNL Memory: WNL Insight: Poor SI/HI Risk Assessment - Minimum 6mo History- Past Suicidal Ideation/Attempts Yes Current Suicidal Ideation/Att Yes Past Homicidal Ideation/Att: No Current Homicidal Ideation/Attempts No Degree of Intent: Plan, States Intent, Thoughts/No Intent Danger To: Self Gravely Disabled: Lack of Insight, Poor Impulse Control, Poor Judgment Risk Factors: access to lethal means, high anxiety/distress, history of suicide atmpts, SA/MH hospitalized, substance abuse, isolate/no social support, poor impulse control, lack of outcome concern, male Lethality Ratin Needs/Init TX Plan/Goals: Monitor mental status and safety, participate in med managment, groups, individual and milieu therapy. AUDIT-C Questionnaire: AUDIT-C Questionnaire: Response Value ETOH use in the past year 2-4 times/week 3 # drinks typical/day 5 or 6 2 6 or > drinks per occasion Less than monthly 1 Total 6 DSM5/PS Stressors/Medical Prob Diagnosis' (DSM 5, Stressors, Medical): F33.2 Major Depressive Disorder Severe without psychotic features. Current GAF: 25
[2018-01-13 19:20] VITALS: BP 124/55
[2018-01-13] MEDS ORDERED: GABAPENTIN300 M2 PO (20:32)
[2018-01-13] MEDS ORDERED: DEPAKOTE ER250 M1 PO (20:35)
--- NOTE | 2018-01-13 21:40 | History & Physical ---
General Information and HPI MD Statement: I have seen and personally examined INDIGO SELLERS and documented this H&P. The patient is a 43 year old M who presented with a patient stated chief complaint of [ medical evaluation ]. Source of Information: patient Exam Limitations: no limitations History of Present Illness: Patient came to ER for depression and suicidal thoughts. He planned to cut himself with razor or hang himself with his belt. Patient had alcoholism problem in the past but now changed to drug use. He endorses cocaine use 2 weeks prior to admission for increasing depression and thoughts of suicide. He denies fever, chills, nausea, vomiting, diarrhea, abdominal pain, chest pain/ chest tightness, palpitations, shortness breath, headache, dysuria, rash, homicidal ideation, hallucination. Patient has not been compliant with his psychiatric medication. Allergies/Medications Allergies: Coded Allergies: No Known Allergies (04/25/17) Home Med list Divalproex Sodium (Depakote ER) (Unknown Strength) TAB.ER.24H (Unknown Dose) PO DEPRESSION (Reported) Gabapentin (Unknown Strength) CAPSULE (Unknown Dose) PO PRN ANXIETY (Reported ) Compliance With Home Meds: POOR Past History Travel History Traveled to [place] past 21 day No Medical History Neurological: NONE EENT: NONE Cardiovascular: NONE Respiratory: NONE Gastrointestinal: NONE Hepatic: NONE Renal: NONE Musculoskeletal: NONE Psychiatric: bipolar disease, depression Endocrine: NONE Blood Disorders: NONE Cancer(s): NONE 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 Ambulation: independent IADLs Independent: shopping, housework, finances, food prep, telephone, transportation , medication admin. Review of Systems Review of Systems Constitutional: Reports: no symptoms. EENTM: Reports: no symptoms. Cardiovascular: Reports: no symptoms. Respiratory: Reports: no symptoms. GI: Reports: no symptoms. Genitourinary: Reports: no symptoms. Musculoskeletal: Reports: no symptoms. Skin: Reports: no symptoms. Neurological/Psychological: Reports: no symptoms. Hematologic/Endocrine: Reports: no symptoms. Exam & Diagnostic Data Last 24 Hrs of Vital Signs/I&O Vital Signs Date Time Temp Pulse Resp B/P B/P Pulse O2 O2 Flow FiO2 Mean Ox Delivery Rate 01/13 1920 96.6 75 124/55 03/ 1604 98.9 77 20 118/67 98 Room Air 03/02 1350 97.8 74 18 125/64 98 Room Air 03/ 1110 97.1 88 18 114/69 99 Room Air 03/02 0825 97.0 80 18 116/58 98 Room Air 03/02 0652 77.0 18 145/76 98 Room Air 03/ 0440 96.2 64 18 114/64 98 Room Air 03/ 0223 96.8 66 18 117/67 98 Room Air 03/ 0011 98.1 86 18 114/74 97 Room Air Physical Exam General Appearance Alert, Oriented X3, Cooperative, No Acute Distress Skin No Rashes, No Breakdown HEENT Atraumatic, PERRLA, EOMI Neck Supple, No JVD, No thryomegaly, +2 Carotid Pulse wo Bruit Lymphatic Cervical nl Cardiovascular Regular Rate, Normal S1, Normal S2, No Murmurs Lungs Clear to Auscultation, Normal Air Movement Abdomen Normal Bowel Sounds, Soft, No Tenderness, No Hepatospenomegaly Neurological Exam Findings: Normal Gait, Normal Speech, Strength at 5/5 X4 Ext, Normal Tone, Sensation Intact, Cranial Nerves 3-12 NL, Reflexes 2+ Cranial Nerves II through XII: 3-12 intact Extremities No Clubbing, No Cyanosis, No Edema, Normal Pulses Vascular Pulses Symmetrical Last 24 Hrs of Labs/Isreal: Laboratory Tests 01/12 01/11 0940 2348 Chemistry Sodium (137 - 145 mmol/L) 143 Potassium (3.5 - 5.1 mmol/L) 3.4 L Chloride (98 - 107 mmol/L) 103 Carbon Dioxide (22 - 30 mmol/L) 24 Anion Gap (5 - 16) 16 BUN (9 - 20 mg/dL) 14 Creatinine (0.7 - 1.2 mg/dL) 0.9 Estimated GFR (>60 ml/min) > 60 BUN/Creatinine Ratio (7 - 25 %) 15.6 Glucose (65 - 99 mg/dL) 119 H Calcium (8.4 - 10.2 mg/dL) 9.8 Total Bilirubin (0.2 - 1.3 mg/dL) 0.7 AST (17 - 59 U/L) 23 ALT (21 - 72 U/L) 17 L Alkaline Phosphatase (< 127 U/L) 68 Total Protein (6.3 - 8.2 g/dL) 7.3 Albumin (3.5 - 5.0 g/dL) 4.6 Globulin (1.9 - 4.2 gm/dL) 2.7 Albumin/Globulin Ratio (1.1 - 2.2 %) 1.7 Hematology CBC w Diff NO MAN DIFF REQ WBC (4.8 - 10.8 /CUMM) 12.1 H RBC (4.70 - 6.10 /CUMM) 4.39 L Hgb (14.0 - 18.0 G/DL) 14.2 Hct (42 - 52 %) 42.5 MCV (80.0 - 94.0 FL) 96.7 H MCH (27.0 - 31.0 PG) 32.4 H MCHC (33.0 - 37.0 G/DL) 33.5 RDW (11.5 - 14.5 %) 13.1 Plt Count (130 - 400 /CUMM) 241 MPV (7.4 - 10.4 FL) 8.4 Gran % (42.2 - 75.2 %) 68.9 Lymphocytes % (20.5 - 51.1 %) 20.4 L Monocytes % (1.7 - 9.3 %) 7.1 Eosinophils % (0 - 5 %) 3.0 Basophils % (0.0 - 2.0 %) 0.6 Absolute Granulocytes (1.4 - 6.5 /CUMM) 8.4 H Absolute Lymphocytes (1.2 - 3.4 /CUMM) 2.5 Absolute Monocytes (0.10 - 0.60 /CUMM) 0.9 H Absolute Eosinophils (0.0 - 0.7 /CUMM) 0.4 Absolute Basophils (0.0 - 0.2 /CUMM) 0.1 Toxicology Urine Opiates Screen (>2000 NG/ML) < 100 Methadone Screen (>300 NG/ML) < 40 Barbiturate Screen (>200 NG/ML) < 60 Ur Phencyclidine Scrn (>25 NG/ML) < 6.00 Amphetamines Screen (>1000 NG/ML) < 100 U Benzodiazepines Scrn (>200 NG/ML) < 85 Urine Cocaine Screen (>300 NG/ML) > 1000.0 H Urine Cannabis Screen (>50 NG/ML) < 5.00 Serum Alcohol (<10 MG/DL) 46.0 01/11 2305 Toxicology Methadone Screen Cancelled Barbiturate Screen Cancelled Ur Phencyclidine Scrn Cancelled Amphetamines Screen Cancelled U Benzodiazepines Scrn Cancelled Urine Cocaine Screen Cancelled Urine Cannabis Screen Cancelled Diagnostic Data EKG Results Reviewed, normal sinus rhythm Assessment/Plan Assessment: # Depression and SI : Agree with psychiatrist plan # Cocaine use : Currently denies any chest pain, palpitations, ECG reviewed unremarkable, blood pressure stable. Conservative management As Ranked By This Provider Problem List: 1. Cocaine abuse 2. Depression with suicidal ideation Miscellaneous Miscellaneous Documentation Attending Case Discussed With: Anthony Lam MD Primary Care Physician: Leobardo Campo MD Patient sees these Specialists Unknown Level of Patient Care: FREDERICK Matt Attending Review Statement Attending Statement Attending MD Statement: examined this patient, agreed w/resident/PA/OCCUPATIONAL THERAPIST HOME BASED, reviewed EMR data (avail), reviewed images, I interviewed the patient and noted H&P
--- NOTE | 2018-01-13 23:57 | Admission Certification ---
Admission Certification Certification Statement - As attending physician, I certify that at the time of - admission, based on clinical presentation, severity of - symptoms, need for further diagnostic testing and - therapeutic interventions, and risk of adverse outcomes - without in-hospital treatment, in my clinical assessment, - this patient requires an acute hospital stay for a minimum - of two nights or longer. I have also considered psychsocial - factors such as support system, advanced age, financial - issues, cognitive issues, and failed out-patient treatments, - past re-admission history, safety of patient, and lack of - compliance as applicable. Specific rationale supporting this admission is: Depression, suicidal ideation
[2018-01-14] VITALS (7 sets, daily range): BP systolic 116–134; BP diastolic 57–73
--- NOTE | 2018-01-14 11:36 | CPS PROVIDER INIT ASMT PSYCH ---
Psychiatric Admission Systems Analyst Engineer's Note Reviewed: Yes Patient Seen and Examined: Yes Identifying Information: [id number] Chief Complaint: "I relasped because of my depression" Reaction to Hospitalization: positive History of Present Illness Onset of Illness: few months ago Circumstances Leading to Admission: relapse Problem(s) Justifying Need for Admission: depression and SI Other HPI: Pt reports that s/p hospitalization at here in April 2017, he did not take meds and did not f/u with discharge plan. He now regrets that as feels that he, "felt so great" at that time. He notes that because of worsening depression he relapsed on cocaine starting last year up until presentation. He started to feel increasingly hopeless and started having SI. Past Psychiatric History Past Diagnosis(es)- if any: MDD, severe Cocaine dependence Nicotine dependence Past Precipitating Factors- if any: substance use - Include inpatient and outpatient treatment Treatment History: Hospitalized at Recently in IOP Hx of treatment and medication noncompliance History of Suicide Attempts or Gestures april 2017 leading to hospitalization Substance Abuse History: tobacco: 1 to 1.5 ppd alcohol: conflicting reports between 1 beer daily up to "a few drinks" illicits: cocaine, use variable, spent 200K last year, this year, using 1-2g/d Allergies: Coded Allergies: No Known Allergies (04/25/17) Home Med List: Pt not taking meds - Include any medical condition(s) that may - impact the patient's recovery/remission Past Medical History: see H&P Past History Medical History Neurological: NONE EENT: NONE Cardiovascular: NONE Respiratory: NONE Gastrointestinal: NONE Hepatic: NONE Renal: NONE Musculoskeletal: NONE Psychiatric: bipolar disease, depression Endocrine: NONE Blood Disorders: NONE Cancer(s): NONE 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: NONE History of MRSA: No History of VRE: No History of CDIFF: No Isolation History: Standard Surgical History Surgical History: none Psychiatric Family/Social Hx Family History Psychiatric Illness: denied Substance Use: father with AUD Suicides: denied Social History Living Situation: lives with and roomate "nate" Significant Relationships (family/friends): gf Education: completed technical HS 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 - #1 Recognizing dangerous situations. - #2 Coping Skills. - #3 Basic information about quitting. Status of Tobacco Cessation Counseling: #1, #2 AND #3 Completed Cessation Med Status Nicotine Patch Ordered Alcohol Screening - ETOH screen POS if BAL >=80 or Audit-C>= M4/F3 Audit-C Score from Diag Assess: 6 Blood Alcohol Level: Laboratory Tests 01/11 2348 Toxicology Serum Alcohol (<10 MG/DL) 46.0 Alcohol Use Screening Results: Pos per Audit C &/or BAL - If ETOH counseling indicated - the following topics are required. - #1 Express concern about the patient's - drinking at unhealthy levels, include informing - of national norms for moderate drinking: - men <= 14 drinks/week, max 4 drinks/occasion - women <= 7 drinks/week, max 3 drinks/occasion - #2 Providing feedback, including linking alcohol to - negative physical effects (liver injury, hypertension) - negative emotional effects (relationship problems and - depression) - negative occupational consequences (reduced work - performance) - #3 Advising the patient to abstain from alcohol or - to drink below national norms for moderate drinking - (as listed above). Status of ETOH Use Counseling: #1, #2 AND #3 Completed. Metabolic Screening - Screen if on a Neuroleptic Medication - Metabolic screening should include: - Blood Pressure, BMI, Glucose or Hgb A1c, & a - Lipid profile from within the past 365 days. Metabolic Screening () Not Applicable, patient not on a neuroleptic. OR () Patient on a neuroleptic(s) . Enter below results for Hemoglobin A1C, and lipid panel if obtained during the last 365 days. BMI: 25.600 Blood Pressure: 117/72 Laboratory Results From [facility] (If applicable): Laboratory Tests 01/12 01/11 0940 2348 Chemistry Sodium (137 - 145 mmol/L) 143 Potassium (3.5 - 5.1 mmol/L) 3.4 L Chloride (98 - 107 mmol/L) 103 Carbon Dioxide (22 - 30 mmol/L) 24 Anion Gap (5 - 16) 16 BUN (9 - 20 mg/dL) 14 Creatinine (0.7 - 1.2 mg/dL) 0.9 Estimated GFR (>60 ml/min) > 60 BUN/Creatinine Ratio (7 - 25 %) 15.6 Glucose (65 - 99 mg/dL) 119 H Calcium (8.4 - 10.2 mg/dL) 9.8 Total Bilirubin (0.2 - 1.3 mg/dL) 0.7 AST (17 - 59 U/L) 23 ALT (21 - 72 U/L) 17 L Alkaline Phosphatase (< 127 U/L) 68 Total Protein (6.3 - 8.2 g/dL) 7.3 Albumin (3.5 - 5.0 g/dL) 4.6 Globulin (1.9 - 4.2 gm/dL) 2.7 Albumin/Globulin Ratio (1.1 - 2.2 %) 1.7 Hematology CBC w Diff NO MAN DIFF REQ WBC (4.8 - 10.8 /CUMM) 12.1 H RBC (4.70 - 6.10 /CUMM) 4.39 L Hgb (14.0 - 18.0 G/DL) 14.2 Hct (42 - 52 %) 42.5 MCV (80.0 - 94.0 FL) 96.7 H MCH (27.0 - 31.0 PG) 32.4 H MCHC (33.0 - 37.0 G/DL) 33.5 RDW (11.5 - 14.5 %) 13.1 Plt Count (130 - 400 /CUMM) 241 MPV (7.4 - 10.4 FL) 8.4 Gran % (42.2 - 75.2 %) 68.9 Lymphocytes % (20.5 - 51.1 %) 20.4 L Monocytes % (1.7 - 9.3 %) 7.1 Eosinophils % (0 - 5 %) 3.0 Basophils % (0.0 - 2.0 %) 0.6 Absolute Granulocytes (1.4 - 6.5 /CUMM) 8.4 H Absolute Lymphocytes (1.2 - 3.4 /CUMM) 2.5 Absolute Monocytes (0.10 - 0.60 /CUMM) 0.9 H Absolute Eosinophils (0.0 - 0.7 /CUMM) 0.4 Absolute Basophils (0.0 - 0.2 /CUMM) 0.1 Toxicology Urine Opiates Screen (>2000 NG/ML) < 100 Methadone Screen (>300 NG/ML) < 40 Barbiturate Screen (>200 NG/ML) < 60 Ur Phencyclidine Scrn (>25 NG/ML) < 6.00 Amphetamines Screen (>1000 NG/ML) < 100 U Benzodiazepines Scrn (>200 NG/ML) < 85 Urine Cocaine Screen (>300 NG/ML) > 1000.0 H Urine Cannabis Screen (>50 NG/ML) < 5.00 Serum Alcohol (<10 MG/DL) 46.0 01/11 2305 Toxicology Methadone Screen Cancelled Barbiturate Screen Cancelled Ur Phencyclidine Scrn Cancelled Amphetamines Screen Cancelled U Benzodiazepines Scrn Cancelled Urine Cocaine Screen Cancelled Urine Cannabis Screen Cancelled Exam and Plan Mental Status Examination Ambulation Status: walking and moving freely w/o difficulty Appearance: as stated age Attitude towards examiner: cooperative Psychomotor activity: ++ activation, moving around in chair, changing positions Behavior: cooperative Quality of speech: slightly pressured, slightly rapid, nl v/p Affect: irritable, constricted, dora, slightly labile Mood: "OK, OK" Suicidal Ideation: denied Homicidal Ideation: denied Hallucinations: denied Paranoid/Delusional Material: none noted Difficulties with thought organization: none noted however, ?racing thoughts Insight: limited Judgment: poor Orientation: a/o x4 Cognition: grossly intact Memory Function: grossly intact Estimate of intellectual functioning: average Assets/Strengths Patient Identified Assets/Strengths: able to communicate, has some support, motivated Impression/Plan Impression and Plan: Pt with hx of MDD concerning for bipolar like illness given periods of mood labilty, ?hypomania, rapid pressured speech though confounding variable to prolonged sustained substance use. Pt previously benefitted from gabapentin and VPA at last admission and will restart. - Include all active medical diagnosis that require tx DSM 5 Diagnosis(es): Unspecified mood disorder Nicotine dependence Alcohol use disorder Cocaine dependence - Initial Tx Plan for Active Psych & Medical Conditions Treatment Plan: - Restarted depakote ER at 500mg overnight, increase to 750mg as pt at 1250mg at last visit and bioavailability of ER - Restarted standing gabapentin, continue PRN - PRNs for sleep and anxiety continue - Need collateral - Pt wants to do IOP then go to rehab - Factors that would help patient function - in a less restrictive setting. Factors: subsance use
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
[2018-01-15] VITALS (7 sets, daily range): BP systolic 113–136; BP diastolic 56–73
--- NOTE | 2018-01-15 11:34 | CP SOUTH PROGRESS NOTE PSYCH ---
Psych (Inpt) Progress Note Progress Note Include the following elements, when applicable: Involvement in the active treatment of the patient with behavioral observations of the patient and the patient's response to the treatment. Review of the ongoing treatment process in the context of the treatment plan. Indication of how multi-disciplinary staff members are carrying out the treatment plan. Plans for future interventions and recommendations for revision of the treatment plan. Liaison with other physicians/providers. Progress Note: Pt notes today that he is concerned that he has "ADD, HDD, or something" because of hyperactivity and racing thoughts. Pt feels better overall and very future oriented to improved medication and treatment compliance upon discharge. Denies SI or HI. Current Medications Sig/Isiah Start time Last Medication Dose Route Stop Time Status Admin Acetaminophen 650 MG Q6P PRN 01/13 2158 AC PO Al Hydroxide/Mg 30 ML Q4-6 PRN PRN 01/13 2158 AC Hydroxide PO Benztropine Mesylate 1 MG Q6P PRN 01/13 2158 AC PO Benztropine Mesylate 1 MG Q6P PRN 01/13 2158 AC IM Divalproex Sodium 750 MG AT BEDTIME 01/14 2200 AC 01/14 PO 2145 Folic Acid 1 MG DAILY 01/14 1106 AC 01/15 PO 01/16 1001 0834 Gabapentin 600 MG TID 01/15 1600 AC PO Gabapentin 300 MG TID 01/14 1600 DC 01/15 PO 0835 Gabapentin 300 MG Q6P PRN 01/13 2100 AC PO Haloperidol 5 MG Q6P PRN 01/13 2158 AC PO Haloperidol 5 MG Q6P PRN 01/13 2158 AC IM Hydroxyzine HCl 50 MG Q6P PRN 01/13 2100 AC PO Lorazepam 2 MG Q2P PRN 01/14 1115 AC PO Lorazepam 1 MG Q2P PRN 01/14 1115 AC PO Lorazepam 2 MG Q6P PRN 01/13 2158 AC IM 01/20 2157 Magnesium Hydroxide 30 ML AT BEDTIME 01/14 2200 AC 01/14 PO 2146 Multivitamins 1 TAB 0800 01/14 0800 AC 01/15 PO 0835 Nicotine 21 MG DAILY 01/14 1000 AC TOP Nicotine 2 MG Q2P PRN 01/13 2100 DC PO Thiamine HCl 100 MG DAILY 01/14 1106 AC 01/15 PO 01/16 1001 0835 Trazodone HCl 50 MG AT BEDTIME 01/12 2200 AC 01/14 PO 2145 Laboratory Tests 01/15 0620 Chemistry Sodium (137 - 145 mmol/L) 143 Potassium (3.5 - 5.1 mmol/L) 4.3 Chloride (98 - 107 mmol/L) 106 Carbon Dioxide (22 - 30 mmol/L) 28 Anion Gap (5 - 16) 9 Hemoglobin A1c (4.2 - 5.8 %) Pending GGT (15 - 73 U/L) 21 Triglycerides (<150 mg/dL) 256 H Cholesterol (< 200 MG/DL) 153 LDL Cholesterol, Calc (65 - 129 mg/dL) 66 HDL Cholesterol (40 - 60 mg/dL) 36 L Cholesterol/HDL Ratio (0.00 - 4.88 %) 4 Amylase (30 - 110 U/L) 59 TSH &T3 &Free T4 Intrp (0.27 - 4.20 uIU/mL) 2.390 Vital Signs Date Time Temp Pulse Resp B/P B/P Pulse O2 O2 Flow FiO2 Mean Ox Delivery Rate 01/15 0801 96.2 84 120/69 04 0754 96.2 84 120/69 01/14 1955 97.5 86 116/73 01/14 1954 97.5 86 116/73 01/14 1557 80 134/64 03 1551 80 134/64 03 1221 76 120/57 0303 1210 76 120/57 MSE General appearance: good hygiene and grooming; Attitude: cooperative but evasive; Eye contact: appropriate; Movement: no psychomotor agitation or slowing; Speech: nl fluency, nl rate/rhythm, nl volume, nl prosody; Mood: "OK" Affect: extremely irritable flat, appropriate, constricted, non-labile, congruent; Thought process: linear and goal-directed; Thought content: denied SI or HI, no paranoid ideation; Perception: denied hallucinations- auditory, visual, does not appear to be responding to internal stimuli; I/J: limited A/P: Pt with hx of MDD concerning for bipolar like illness given periods of mood labilty, ?hypomania, rapid pressured speech though confounding variable to prolonged sustained substance use. - Increased gabapenting to 600mg TID - Encourage intergration into the milieu
[2018-01-16] VITALS (7 sets, daily range): BP systolic 108–121; BP diastolic 60–69
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
--- NOTE | 2018-01-16 16:37 | SOCIAL WORKER PROG NOTE PSYCH ---
Social Work Progress Note Progress Note Met with Reese he was pleasant and cooperative. His thoughts are clear and goal directed. His speech is pressured, and he appears very anxious. He stated he is not suicidal, denied HI, no AH/VH. He rates anxiety 2/10(worst) and depression 0/10. He reports he needs to "get healthy" and stop using drugs. He wants to stay on medication, he stated "it helps me stay calm." He stated the trigger to relapsing after his last admission was getting back together with his girlfriend - who also uses drugs. He stated 'I did everything for her...." He admitted "the relationship was not healthy." He reports the longest period of sobriety was 3 weeks since his last admission when he was working in [facility] and surrounding area on a project. He said when he was working he didn't use drugs. He reports he has to complete classes at [facility] and community service for court. He signed an [facility]. Reggiehaleigh stated he is not interested in a family meeting - he stated "I have no family." He gave a contact as his ex-, but stated yefriy have very conflictual relationship and she is not upportive of him. He stated "I did the same thing when we were together - "I used drugs." He stated his 13yo daughter knows he is here because of substance abuse issues. He wants to stay with a male friend upon discharge. He stated his friend does not use drugs. Concern remains regarding relapse and medication compliance. Gave [place] phone number for [employer] [facility], as well as calling [facility] to inform them he cannot make the CAN assessment today. Advised Reese to call 211 and obtain another CAN assessment.
[2018-01-17] VITALS (8 sets, daily range): BP systolic 106–125; BP diastolic 62–73
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
--- NOTE | 2018-01-17 10:47 | SOCIAL WORKER PROG NOTE PSYCH ---
Social Work Progress Note Progress Note Pt is connected to [facility] [phone] he works with Tracee at [phone], I left her a voicemail requesting a follow up appointment upon discharge.
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
--- NOTE | 2018-01-17 12:58 | SOCIAL WORKER PROG NOTE PSYCH ---
Social Work Progress Note Progress Note INDIGO DANGDONISVERONICA [id number] 1975 IDNIGO SELLERS [id number] Pended Authorization # Client Authorization # Type of Request [id number] CONCURRENT Date of Admission/ Start of Services Requested From Submission Date 01/13/2018 01/17/2018 01/17/2018
[2018-01-18 07:35] VITALS: BP 136/74
[2018-01-18 08:04] VITALS: BP 136/74
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
--- NOTE | 2018-01-18 09:32 | SOCIAL WORKER PROG NOTE PSYCH ---
Social Work Progress Note Progress Note Assited Argiris in calling [employer] to clarify when Enrriqueky will be active. Found outit will take 45days for insurance to be active. Customer service did advise patient to go to [facility] office in [address] early in morning (8am), to expedite activation. Provided Argiris with a list of sober houses, and NA meeting list. He stated he has both NA and AA Veronika on his phone. Submitted indigent medication request for medicaitons with [facility]. Completed [facility] discharge.
[2018-01-18] MEDS ORDERED: HYDROXYZINE HCL50 M1 PO (10:19)
[2018-01-18] MEDS ORDERED: TRAZODONE HCL50 M1 PO (10:19)
[2018-01-18] MEDS ORDERED: DEPAKOTE ER500 M1 PO (10:19)
[2018-01-18] MEDS ORDERED: DEPAKOTE ER250 M1 PO (10:19)
[2018-01-18] MEDS ORDERED: NICORELIEF2 MG PO (10:19)
[2018-01-18] MEDS ORDERED: GABAPENTIN300 M2 PO (10:19)
[2018-01-18] MEDS ORDERED: ONE DAILY MULT1 EAC2 PO (10:19)
--- NOTE | 2018-01-18 10:28 | Patient Discharge Instructions ---
Psych Discharge Inst General Discharge Information Reason for Admission: Depression, suicidal ideation, drinking, cocaine use. Psy Discharge Primary Diag+ Bipolar d/o, depressed Psy Discharge Secondary Diag+ Alcohol use disorder Cocaine use disorder Summary Tests/Major Procedures Lab ALT 17 U/L L 01/11/18 2348 AST 23 U/L 01/11/18 2348 BUN 14 mg/dL 01/11/18 2348 Calcium 9.8 mg/dL 01/11/18 2348 Carbon Dioxide 28 mmol/L 01/15/18 0620 Chloride 106 mmol/L 01/15/18 0620 Cholesterol 153 MG/DL 01/15/18 0620 Cholesterol/HDL Ratio 4 % 01/15/18 0620 Creatinine 0.9 mg/dL 01/11/18 2348 Estimated GFR > 60 ml/min 01/11/18 2348 GGT 21 U/L 01/15/18 0620 Glucose 119 mg/dL H 01/11/18 2348 HDL Cholesterol 36 mg/dL L 01/15/18 0620 Hemoglobin A1c 4.6 % 01/15/18 0620 LDL Cholesterol, Calc 66 mg/dL 01/15/18 0620 Potassium 4.3 mmol/L 01/15/18 0620 Sodium 143 mmol/L 01/15/18 0620 TSH &T3 &Free T4 Intrp 2.390 uIU/mL 01/15/18 0620 Triglycerides 256 mg/dL H 01/15/18 0620 Absolute Granulocytes 8.4 /CUMM H 01/11/18 2348 Absolute Monocytes 0.9 /CUMM H 01/11/18 2348 Hct 42.5 % 01/11/18 2348 Hgb 14.2 G/DL 01/11/18 2348 Lymphocytes % 20.4 % L 01/11/18 2348 MCH 32.4 PG H 01/11/18 2348 MCV 96.7 FL H 01/11/18 2348 Plt Count 241 /CUMM 01/11/18 2348 RBC 4.39 /CUMM L 01/11/18 2348 WBC 12.1 /CUMM H 01/11/18 2348 Serum Alcohol 46.0 MG/DL 01/11/18 2348 Urine Cocaine Screen > 1000.0 NG/ML H 01/12/18 0940 Valproic Acid 27.3 ug/mL L 01/17/18 0606 EKG 01/11/18 showed sinus rhythm @ 87, probably no significant change since previous tracing, baseline artifact/wander, normal EKG, QT 372, QTc 448. Studies Pending at [place]: None. Patient Instructions Contact Information Your Psychiatrist on [facility] was Genaro RODRIGUEZ,Anthony * If you are experiencing an emergency related to this hospitalization, please call [phone] to contact the treating psychiatrist or the psychiatrist-on- call. * To Request a copy of your medical records, please contact the Medical Records Department at [phone]. * To request results of studies pending at the time of discharge, please call [phone]. * Continue your Medications until directed to stop by your Healthcare provider. General Medication Information Please continue to take your new medications and your continued home medications , unless otherwise indicated on your discharge medication list, or unless directed by your MD or BUCKET PUSHER to stop them. Special Instructions Diet Regular Activity Normal Other Inst/Recommendations See PCP for abnormal labs above. Stay clean. Have Depakote level checked. - Tobacco Use Treatment Offered Post DC Medications Offered: Script Given-See Med List Post DC Tobacco Treatment Plan: [facility] Appt Date: 02/15/18 Program Appt Time: 1600 - EtOH/Drug Use D/O Treatment Offered Post DC Medications Offered: Med Not Indicated for D/O Post DC EtOH/SubAbuse TX Plan: Other SubAbuse/Dual Pgm ([facility]) Program Appt Date: 01/19/18 Program Appt Time: 1715 Metabolic Screening ([x]) Not Applicable, patient not on a neuroleptic. OR () Patient on a neuroleptic(s) . Enter below results for Hemoglobin A1C, and lipid panel if obtained during the last 365 days. BMI: 25.600 Blood Pressure: 136/74 Laboratory Results From [facility] EHR (If applicable): Advance Directives Does the Patient have Medical Advance Directives No/Refused further info Does Pt have Psychiatric Advance Directives? No/Refused further info Does Patient have a Designated Surrogate Decision Maker: No Information About Psychiatric Advance Directives Provided? Refused Discharge Plan Post Hospital Treatment Plan: Return to [facility] 01/19/18 at 5:15 pm.
--- NOTE | 2018-01-18 12:34 | SOCIAL WORKER PROG NOTE PSYCH ---
Social Work Progress Note Faxed Referral(s) Referred To: [facility] Transition of Care Documents sent: Health Summary Faxed to: [facility] Fax #: [phone] Faxed by: Mayra Neal Date faxed: 01/18/18 Time Faxed: [phone]
--- NOTE | 2018-01-18 14:42 | CP SOUTH PROGRESS NOTE PSYCH ---
Psych (Inpt) Progress Note Progress Note Include the following elements, when applicable: Involvement in the active treatment of the patient with behavioral observations of the patient and the patient's response to the treatment. Review of the ongoing treatment process in the context of the treatment plan. Indication of how multi-disciplinary staff members are carrying out the treatment plan. Plans for future interventions and recommendations for revision of the treatment plan. Liaison with other physicians/providers. Progress Note: Case and treatment plan discussed in team meeting. Staff reports that the patient is denying suicidal ideation. Doing well. Seems calmer this morning. Patient seen at 10:09 AM. Reports he is doing "excellent." He shaved his mustache. He has no complaints. Affect is calm and blunted to euthymic. He is pleased with increases in Depakote ER and Neurontin doses. Feels a little tired but is pleased because he feels calmer and not hyper. Rates sad mood and anxiety both 0/10. Denies feeling hopeless, helpless, worthless or guilty. Denies active and passive suicidal ideation. Denies homicidal ideation. Denies auditory and visual hallucinations and paranoid ideation. Reports sleep is good and appetite is very good. Reports energy is normal. Tolerating medications well, without complaint. Feels ready and safe for discharge. Patient plans to live at his friend, Cody's home, at [address] in [place], [place]. The patient will return to [facility]. IMPRESSION: Condition improved. Okay for discharge today on expiration of 3-day paper. Plan as above.
--- NOTE | 2018-01-18 14:52 | DISCHARGE SUMMARY REPORT-PSYCH ---
Visit Information Visit Dates/Diagnosis' Admission Date: 01/13/18 Discharge Date: 01/18/18 Reason for Admission: Depression, suicidal ideation, drinking, cocaine use. Psy Discharge Primary Diag: Bipolar d/o, depressed Psy Discharge Secondary Diag: Alcohol use disorder Cocaine use disorder Hospital Course Significant Lab Findings: Lab ALT 17 U/L L 01/11/18 2348 AST 23 U/L 01/11/18 2348 BUN 14 mg/dL 01/11/18 2348 Calcium 9.8 mg/dL 01/11/18 2348 Carbon Dioxide 28 mmol/L 01/15/18 0620 Chloride 106 mmol/L 01/15/18 0620 Cholesterol 153 MG/DL 01/15/18 0620 Cholesterol/HDL Ratio 4 % 01/15/18 0620 Creatinine 0.9 mg/dL 01/11/18 2348 Estimated GFR > 60 ml/min 01/11/18 2348 GGT 21 U/L 01/15/18 0620 Glucose 119 mg/dL H 01/11/18 2348 HDL Cholesterol 36 mg/dL L 01/15/18 0620 Hemoglobin A1c 4.6 % 01/15/18 0620 LDL Cholesterol, Calc 66 mg/dL 01/15/18 0620 Potassium 4.3 mmol/L 01/15/18 0620 Sodium 143 mmol/L 01/15/18 0620 TSH &T3 &Free T4 Intrp 2.390 uIU/mL 01/15/18 0620 Triglycerides 256 mg/dL H 01/15/18 0620 Absolute Granulocytes 8.4 /CUMM H 01/11/18 2348 Absolute Monocytes 0.9 /CUMM H 01/11/18 2348 Hct 42.5 % 01/11/18 2348 Hgb 14.2 G/DL 01/11/18 2348 Lymphocytes % 20.4 % L 01/11/18 2348 MCH 32.4 PG H 01/11/18 2348 MCV 96.7 FL H 01/11/18 2348 Plt Count 241 /CUMM 01/11/18 2348 RBC 4.39 /CUMM L 01/11/18 2348 WBC 12.1 /CUMM H 01/11/18 2348 Serum Alcohol 46.0 MG/DL 01/11/18 2348 Urine Cocaine Screen > 1000.0 NG/ML H 01/12/18 0940 Valproic Acid 27.3 ug/mL L 01/17/18 0606 EKG 01/11/18 showed sinus rhythm @ 87, probably no significant change since previous tracing, baseline artifact/wander, normal EKG, QT 372, QTc 448. Course Complications: None. Consultations: Patient was seen for admission H&P by Dr. Schneider, who noted: "Assessment: # Depression and SI : Agree with psychiatrist plan # Cocaine use : Currently denies any chest pain, palpitations, ECG reviewed unremarkable, blood pressure stable. Conservative management" Allergies: Coded Allergies: No Known Allergies (04/25/17) Hospital Course/TX Response: The patient was monitored on the unit for safety, substance withdrawal and mood disorder. He participated in multi-modal treatments on the unit. He was treated with Depakote ER and Neurontin as well as prn's of trazodone and hydroyzine. The patient submitted a 3-day paper and he was discharged on expiration of that paper. Mood and affect improved. Suicidal ideation remitted. Progress note from date of discharge, 01/18/18: "Case and treatment plan discussed in team meeting. Staff reports that the patient is denying suicidal ideation. Doing well. Seems calmer this morning. Patient seen at 10:09 AM. Reports he is doing "excellent." He shaved his mustache. He has no complaints. Affect is calm and blunted to euthymic. He is pleased with increases in Depakote ER and Neurontin doses. Feels a little tired but is pleased because he feels calmer and not hyper. Rates sad mood and anxiety both 0/10. Denies feeling hopeless, helpless, worthless or guilty. Denies active and passive suicidal ideation. Denies homicidal ideation. Denies auditory and visual hallucinations and paranoid ideation. Reports sleep is good and appetite is very good. Reports energy is normal. Tolerating medications well, without complaint. Feels ready and safe for discharge. Patient plans to live at his friend, Cody's home, at [address] [facility] in [place], [place]. [facility]. IMPRESSION: Condition improved. Okay for discharge today on expiration of 3-day paper. Plan as above. Discharge HBIPS - Tobacco Use Treatment Offered Post DC Medications Offered: Script Given-See Med List Post DC Tobacco Treatment Plan: [facility] Appt Date: 02/15/18 Program Appt Time: 1600 - EtOH/Drug Use D/O Treatment Offered Post DC Medications Offered: Med Not Indicated for D/O Post DC EtOH/SubAbuse TX Plan: Other SubAbuse/Dual Pgm ([facility]) Program Appt Date: 01/19/18 Program Appt Time: 1715 Metabolic Screening - Screen if on a Neuroleptic Medication - Metabolic screening should include: - Blood Pressure, BMI, Glucose or Hgb A1c, & a - Lipid profile from within the past 365 days. Metabolic Screening ([x]) Not Applicable, patient not on a neuroleptic. OR () Patient on a neuroleptic(s) . Enter below results for Hemoglobin A1C, and lipid panel if obtained during the last 365 days. BMI: 25.600 Blood Pressure: 136/74 Laboratory Results From [facility] (If applicable): Discharge Instructions General Discharge Information Multiple Neuroleptics: ([x]) Not Applicable OR Document below three failed attempts at monotherapy, or a plan to taper to monotherapy, or augmentation of Clozapine. () Discharge Diet Regular Discharge Activity Normal DC Disposition: Patient plans to live at his friend, Cody's home, at [address] [facility] in [place], [place]. Referrals Ordered Referrals Provider Referral 01/19/18 For Groups: [[facility]] Patient will resume dual IOP with [facility] 01/19/18 5:15-8:15. [address] [place] [address] Provider Referral 02/01/18 For Groups: [facility] 02/01/18 4pm [address] [place] [address] Prescriptions Stop taking the following medications: Gabapentin (Gabapentin) (Unknown Strength) CAPSULE ORAL as needed for ANXIETY Qty = 42 Divalproex Sodium (Depakote ER) (Unknown Strength) TAB.ER.24H ORAL Qty = 14 Start taking the following new medications: Nicotine (Nicorelief) 2 MG GUM 2 Milligram ORAL EVERY 2 HOURS NEEDED as needed for nicotine craving Qty = 100 No Refills Comments: Last Taken:NOT USED IN THE HOSPITAL Time: Gabapentin (Gabapentin) 300 MG CAPSULE 3 Capsule ORAL THREE TIMES DAILY Qty = 42 No Refills Comments: Last Taken:01/18/18 Time:0800 Trazodone HCl (Trazodone HCl) 50 MG TABLET 50 Milligram ORAL AT BEDTIME Qty = 14 No Refills Comments: Last Taken:01/17/18 Time:2200 Hydroxyzine Hydrochloride (Atarax) 50 MG TAB 1 Tablet ORAL EVERY SIX HOURS NEEDED as needed for ANXIETY Qty = 28 No Refills Comments: Last Taken:01/17/18 Time:1100 Multivitamin (One Daily Multivitamin) 1 EACH TABLET 1 Tablet ORAL DAILY @8 AM Qty = 14 No Refills Comments: Last Taken:01/18/18 Time:0800 Divalproex Sodium (Depakote ER) 500 MG TAB.ER.24H 2 Tablet ORAL AT BEDTIME Qty = 28 No Refills Comments: Last Taken:01/17/18 Time:2200 Divalproex Sodium (Depakote ER) 250 MG TAB.ER.24H 1 Tablet ORAL AT BEDTIME Qty = 14 No Refills Comments: Last Taken:01/17/18 Time:2200 Other Inst/Recommendations See PCP for abnormal labs above. Stay clean. Have Depakote level checked. Studies Pending at Discharge None. Copies To: [facility]
== END 2018-01-18 11:50 | DRG 753 ==
LOC: ERH 22:29 → ERHI 23:51 → EDBEDREQ 01-13 18:09 → ENTRNSPT 01-13 18:20 → CP SOUTH 01-13 18:45 → CMPTRNSPT 01-13 18:48 → CP SOUTH 01-13 18:53
PROVIDERS: Emergency Medicine; Psychiatry & Neurology Psychiatry
DX: F31.9 Bipolar disorder, unspecified (principal); Z72.89 Other problems related to lifestyle; F14.90 Cocaine use, unspecified, uncomplicated
CPT/HCPCS: 36415; 80307; 93005; 93010; G0463; G0480; J0515; J1630; J3490